=== PATIENT | male | born 1970 | race Caucasian/White ===

== ENCOUNTER → 2017-06-17 19:50 | Emergency (ER) | payer BC ==
[~2017-06-17 19:50] MED LIST: HYDROcodone/ACETAMIN 5-325 MG* 1 TAB PO ONE
[2017-06-17 19:55] VITALS: BP 137/83
--- NOTE | 2017-06-17 21:23 | RAD ---
Indication: Severe heel pain radiating to the arch of the foot following running injury. Unable to weight-bear. Comparison: No relevant prior exams available on the [facility] for comparison. Technique: AP, lateral, and oblique views LEFT foot. 3 views of the os calcis. Report: Approximate 35 degrees hallux valgus deformity. Minimal osteophytosis and subchondral sclerosis at the first metatarsal phalangeal joint without significant joint space narrowing. Mild osteophytosis at the talocrural joint. No fracture or radiographic stigmata of stress reaction evident. Moderate Achilles tendon insertion and small plantar fascia origin bone spurs. Mild nonfocal soft tissue swelling. IMPRESSION: 1. Heel spurs. 2. 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 Mild hallux valgus deformity.
--- NOTE | 2017-06-17 21:23 | RAD ---
Indication: Severe heel pain radiating to the arch of the foot following running injury. Unable to weight-bear. Comparison: No relevant prior exams available on the [facility] for comparison. Technique: AP, lateral, and oblique views LEFT foot. 3 views of the os calcis. Report: Approximate 35 degrees hallux valgus deformity. Minimal osteophytosis and subchondral sclerosis at the first metatarsal phalangeal joint without significant joint space narrowing. Mild osteophytosis at the talocrural joint. No fracture or radiographic stigmata of stress reaction evident. Moderate Achilles tendon insertion and small plantar fascia origin bone spurs. Mild nonfocal soft tissue swelling. IMPRESSION: 1. Heel spurs. 2. 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 Mild hallux valgus deformity.
--- NOTE | 2017-06-17 22:37 | UC ---
Lower Extremity/Ankle HPI - HPI Summary HPI Summary: PLAYING SOFTBALL, RUNNING TO FIRST BASE, FELT POP IN LEFT MIDFOOT WITH HEEL PAIN. NO PREVIOUS INJURY, PAIN IN MIDFOOT SINCE TIME OF INJURY - History of Current Complaint Chief Complaint: UCLowerExtremity Stated Complaint: FOOT INJURY Time Seen by Provider: 06/17/17 20:35 Hx Obtained From: Patient Onset/Duration: Sudden Onset, Lasting Hours, Still Present Severity Initially: Moderate Severity Currently: Moderate Pain Intensity: 10 Pain Scale Used: 0-10 Numeric Aggravating Factor(s): Standing, Ambulation Alleviating Factor(s): Rest, Elevation Able to Bear Weight: No - Risk Factors Gout Risk Factors: Negative DVT Risk Factors: Negative Septic Arthritis Risk Factor: Negative - Allergies/Home Medications Allergies/Adverse Reactions: Allergies Allergy/AdvReac Type Severity Reaction Status Date / Time SEAONAL Allergy Coughing Uncoded 10/25/16 15:59 PMH/Surg Hx/FS Hx/Imm Hx Previously Healthy: Yes - Surgical History Surgical History: Yes Surgery Procedure, Year, and Place: TONSILECTOMY age 32. HERNIA REPAIR age 3 - Family History Known Family History: Positive: Hypertension, Other - Father brain aneurysm at age 41 - Social History Occupation: Employed Full-time Lives: With Family Alcohol Use: Occasionally Substance Use Type: None Smoking Status (MU): Former Smoker Have You Smoked in the Last Year: No When Did the Patient Quit Smoking/Using Tobacco: when he was 26 - Immunization History Most Recent Influenza Vaccination: none Review of Systems Constitutional: Negative Skin: Negative Eyes: Negative ENT: Negative Respiratory: Negative Cardiovascular: Negative Gastrointestinal: Negative Genitourinary: Negative Motor: Negative Neurovascular: Negative Musculoskeletal: Arthralgia, Myalgia Neurological: Negative Psychological: Negative All Other Systems Reviewed And Are Negative: Yes Physical Exam Triage Information Reviewed: Yes Appearance: Well-Appearing, Well-Nourished, Pain Distress Vital Signs: Initial Vital Signs Temp 98.4 F 06/17/17 19:52 Pulse 80 06/17/17 19:52 Resp 17 06/17/17 19:52 BP 137/83 06/17/17 19:52 Pulse Ox 100 06/17/17 19:52 Vital Signs Reviewed: Yes Eye Exam: Normal ENT Exam: Normal ENT: Positive: Normal ENT inspection, Hearing grossly normal, Pharynx normal, TMs normal Dental Exam: Normal Neck exam: Normal Respiratory Exam: Normal Respiratory: Positive: Chest non-tender, Lungs clear, Normal breath sounds, No respiratory distress, No accessory muscle use Cardiovascular Exam: Normal Cardiovascular: Positive: RRR, No Murmur, Pulses Normal Abdominal Exam: Normal Musculoskeletal: Positive: Strength Intact, ROM Intact, No Edema, Other: - PAIN IN MIDFOOT OF LEFT FOOT, TENDER TO PALPATION Neurological Exam: Normal Psychological Exam: Normal Skin Exam: Normal Diagnostics - Laboratory Diagnostic Studies Completed/Ordered: HEEL SPURS, OSTEOARTHRITIS OF TALOCRURAL JOINT, MILD HALLUX VAGUS DEFORMITY Lower Extremity Course/Dx - Differential Dx/Diagnosis Differential Diagnosis/HQI/PQRI: Fracture (Closed), Sprain, Strain Provider Diagnoses: LEFT FOOT SPRAIN, LEFT PLANTAR FASCIITIS Discharge - Discharge Plan Condition: Stable Disposition: HOME Prescriptions: HYDROcodone/ACETAMIN 5-325 MG* [Linn 5-325 TAB*] 1 tab PO Q8H PRN #9 tab MDD three tabs PRN Reason: Pain Patient Education Materials: Plantar Fasciitis Exercises (GEN), Plantar Fasciitis (ED), Foot Sprain (ED) Referrals: Manuel Tavarez MD [Medical Doctor] - Manuel Alva DPM [Doctor of Podiatric Medicine] - Easton Rock MD [Primary Care Provider] -
== END | disposition home or self-care (01) ==
LOC: UCEAST 19:50
DX: S93.602A Unspecified sprain of left foot, initial encounter (principal); M72.2 Plantar fascial fibromatosis; Z87.891 Personal history of nicotine dependence; X58.XXXA Exposure to other specified factors, initial encounter; Y93.64 Activity, baseball
CPT/HCPCS: 99213; G0463

== ENCOUNTER 2018-07-31 19:07 | Emergency (ER) | payer BC ==
[2018-07-31 19:30] VITALS: BP 134/94
[2018-07-31] MEDS ORDERED: Ciprofloxacin TAB* 500 MG PO ONE (19:51)
[2018-07-31] MEDS ORDERED: metroNIDAZOLE TAB* 250 MG PO ONE (19:51)
--- NOTE | 2018-07-31 19:57 | UC ---
Abdominal Pain Male HPI - HPI Summary HPI Summary: Patient is a 48-year-old male with diabetes who presents here with the onset of left sided abdominal pain which started yesterday morning. Pain has worsened this afternoon. Pain is worse with certain movements or if he stays seated too long. He has felt like the pain is due to gas. Today he felt cold. He had a hernia repair as a child. Last night his pain would wake him up if he turned over in bed. - History of Current Complaint Chief Complaint: UCAbdominalPain Stated Complaint: ABDOMINAL PAIN Time Seen by Provider: 07/31/18 19:19 Hx Obtained From: Patient Onset/Duration: Gradual Onset, Lasting Hours Timing: Constant Severity Initially: Mild Severity Currently: Moderate Pain Intensity: 1 - but worsens Location: Discrete At: LLQ Radiates: No Character: Colicy Aggravating Factor(s): Movement Alleviating Factor(s): Rest, Position - Allergies/Home Medications Allergies/Adverse Reactions: Allergies Allergy/AdvReac Type Severity Reaction Status Date / Time SEAONAL Allergy Coughing Uncoded 07/31/18 19:19 Home Medications: Home Medications Metformin ER (NF) 1,000 mg PO DAILY 07/31/18 [History Confirmed 07/31/18] PMH/Surg Hx/FS Hx/Imm Hx Endocrine History: Diabetes, Dyslipidemia - Surgical History Surgical History: Yes Surgery Procedure, Year, and Place: TONSILECTOMY age 32. HERNIA REPAIR age 3 - Family History Known Family History: Positive: Hypertension, Diabetes, Other - Father brain aneurysm at age 41 - Social History Alcohol Use: Occasionally Substance Use Type: None Smoking Status (MU): Former Smoker Have You Smoked in the Last Year: No When Did the Patient Quit Smoking/Using Tobacco: when he was 26 - Immunization History Most Recent Influenza Vaccination: none Review of Systems Constitutional: Chills Skin: Negative Eyes: Negative ENT: Negative Respiratory: Negative Cardiovascular: Negative Gastrointestinal: Abdominal Pain Genitourinary: Negative Motor: Negative Neurovascular: Negative Musculoskeletal: Negative Neurological: Negative Psychological: Negative Is Patient Immunocompromised?: No All Other Systems Reviewed And Are Negative: Yes Physical Exam Triage Information Reviewed: Yes Appearance: Well-Appearing, No Pain Distress, Well-Nourished Vital Signs: Initial Vital Signs Temp 100.0 F 07/31/18 19:21 Pulse 93 07/31/18 19:21 Resp 18 07/31/18 19:21 BP 134/94 07/31/18 19:21 Pulse Ox 97 07/31/18 19:21 Vital Signs Reviewed: Yes Eyes: Positive: Conjunctiva Clear ENT: Negative: Nasal congestion, Nasal drainage, Trismus, Muffled voice Neck: Positive: Supple, Nontender Respiratory: Positive: Lungs clear, Normal breath sounds, No respiratory distress, No accessory muscle use Cardiovascular: Positive: RRR, No Murmur Abdomen Description: Negative: Nontender - markedly tender left abd Bowel Sounds: Positive: Present Musculoskeletal: Positive: ROM Intact, No Edema Neurological: Positive: Alert Psychological Exam: Normal Skin Exam: Normal Abd Pain Male Course/Dx - Differential Dx/Clinical Impression Provider Diagnoses: left sided abd pain- suspect diverticulitis Discharge - Sign-Out/Discharge Documenting (check all that apply): Patient Departure All imaging exams completed and their final reports reviewed: No Studies - Discharge Plan Condition: Stable Disposition: TRANS HIGHER LVL OF CARE FAC Referrals: Easton Rock MD [Primary Care Provider] - Additional Instructions: I suggest you go straight to the ER for evaluation of your pain Don't eat or drink en route I suspect you have diverticulitis - Billing Disposition and Condition Condition: STABLE Disposition: Trans Higher Lvl of Care Fac
== END 2018-07-31 20:06 | disposition short-term general hospital (02) ==
LOC: UCEAST 19:07
DX: R10.32 Left lower quadrant pain (principal); E11.9 Type 2 diabetes mellitus without complications; Z79.84 Long term (current) use of oral hypoglycemic drugs; Z87.891 Personal history of nicotine dependence
CPT/HCPCS: 99212; A9270-GY; G0463

== ENCOUNTER 2018-11-06 22:08 | Emergency (ER) | payer BC ==
--- OUTSIDE RECORDS SUMMARY | 2018-11-06 22:19 | XMS REPORT | Continuity of Care Document ---
:1970 External Reference #:[id number] Author Name Kelley Mujica Care Team Providers Name Role Phone Easton Rock MD Primary Care Physician Unavailable Payers Type Date Identification Numbers Payment Provider Subscriber Effective: Policy Number: [id number] [employer] [place] 2011 PayID: [id number] [address] [address] [place] [address] Advance Directives Description No Information Available Problems Date Description Provider Status Onset: 11/26/2013 Shoulder joint pain Osvaldo Lozano M.D. 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 ETOH Use Drinks 4 Alcoholic Beverages Per Week Tobacco Use Start: Unknown Patient has never smoked Smoking Status Reviewed: 10/14/18 Patient has never smoked Exercise Type/Frequency Exercises regularly Allergies, Adverse Reactions, Alerts Description No Known Drug Allergies Medications Medication Date Status Form Strength Qnty SIG Indications Ordering Provider Atorvastatin Active Tablets 20mg Vu, Calcium 00 Elsa, ICE CREAM CHEF Metformin HCL Active Tablets 1000mg 2 pills Unknown 00 twice a day by mouth Medications Administered in Office Medication Date Status Form Strength Qnty SIG Indications Ordering Provider Depomedrol Administered Injection Osvaldo 80MG Latesha Lozano M.D. Immunizations Description No Information Available Vital Signs Date Vital Result Comment 10/14/2018 4:15pm Height 68 inches 5'8" Weight 196.50 lb Heart Rate 71 /min BP Systolic 109 mmHg BP Diastolic 73 mmHg Respiratory Rate 18 /min Pain Level 0 O2 % BldC Oximetry 99 % BMI (Body Mass Index) 29.9 kg/m2 09/04/2012 8:36am Height 68 inches 5'8" Weight 224.00 lb Heart Rate 72 /min BP Systolic 133 mmHg BP Diastolic 89 mmHg BMI (Body Mass Index) 34.1 kg/m2 Results Description No Information Available Procedures Date Code Description Status 10/21/2012 Inject/Drain Joint/Bursa Major W/O US Completed 10/21/2012 Inject Tendon Sheath Or Ligament Aponeurosis Eg Plantar Completed Fascia 09/04/2012 88604 Rad Shoulder Comp, Min. 2 Views Completed Encounters Type Date Location Provider Dx Diagnosis Office Visit 02/03/2013 Mukund Lozano M.D. 726.2 Shoulder Region 11:45a Services Of [facility] Affections Other Not Elsewhere Class Office Visit 11/27/2012 Orthopedic Tyshawn Barbosa 726.2 Shoulder Region 3:30p Services Of [facility] [place], Affections Other R.P.A.-C Not Elsewhere Class Office Visit 10/21/2012 Mukund Lozano M.D. 719.51 Stiffness Joint 8:45a Services Of [facility] Not Elsewhere Classified Shoulder Region 726.2 Shoulder Region Affections Other Not Elsewhere Class 719.41 Pain Joint Shoulder Region Office Visit 09/04/2012 8:00a Mukund Lozano 719.51 Stiffness Joint Services Of [facility] Not Elsewhere C.[facility]AMiguel Classified Shoulder Region 726.2 Shoulder Region Affections Other Not Elsewhere Class Plan of Treatment No Information Available
--- OUTSIDE RECORDS SUMMARY | 2018-11-06 22:19 | XMS REPORT ---
:1970 External Reference #:[id number] Author Organization [facility] Address [address] [place] [address] Phone [phone] Care Team Providers Name Role Phone Easton Rock MD Care Team Information [employer] Unavailable Easton Rock MD Primary Care Physician Unavailable Payers Type Date Identification Numbers Payment Provider Subscriber Commercial Effective: Policy Number: BC/BS Of IVA [place] 2011 [id number] PayID: [id number] [place] [address] Medigap Part B Effective: Policy Number: BC/BS Of IVA [place] 2004 [id number] Ricci Expires: 2011 Group Number: [id number] [address] PayID: [id number] [place] [address] Problems Date Description Provider Status Onset: 11/10/2008 Hyperlipidemia Easton Rock M.D. Active Onset: 11/03/2016 Type 2 diabetes mellitus Easton Rock M.D. Active Onset: 11/03/2016 Acute maxillary sinusitis Easton Rock M.D. 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 2015 day Niaspan 09/20/ Hx TBCR 500mg 30uni Take One 272.4 Easton AMiguel 2009 - ts Tablet By Shweta, 05/07/ Mouth AT M.D. 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 2008 Doxycycline 10/25/ Hx Capsules 100mg 28cap 1 PO bid 466.0 Pillai A. 2006 - s Ines, 01/09/ M.D. 2007 Guaifenisin 11/19/ Hx 600mg 30uni 1 PO bid Jaelyn 2006 - ts prn Kadeem, 12/03/ Afnp-C 2007 Viscous 11/02/ Hx 2% 4Oz Mix W/ 528.09 Lois Lidocaine 2006 - Equal Parts Scott, 11/12/ Of Liquid Afnp-C 2006 Benadryl And Maalox; Gargle And Spit Q 4 HRS prn 4 Oz Total Of Mixture Doxycycline 10/07/ Hx Capsules 100mg 20cap 1 po bid 466.0 Jaelyn 2006 - s Kadeem, 11/29/ Afnp-C 2007 Tussi Organidin 10/07/ Hx 100cc 1 -2 TSP 466.0 Easton A. DM-NR 2006 - qid prn Darlow, 10/17/ M.D. 2005 Astelin Nasal 12/20/ Hx Solution 137mcg 1Bott 2 sprays Easton Sweet [place] 2005 - le tid prn Darlow, 03/09/ M.D. 2014 Nasacort 12/20/ Hx 1unit 2 sprays qd Easton AMiguel 2005 - s Shweta, 12/04/ M.D. 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 2006 Zithromax 08/17/ Hx 250mg 6unit 2 Tabs Day Seda 2002 - s 1 Ny, 11/16/ FOOD SERVICE DRIVER 2002 1 Tab qd Days 2 Thru 5 Tussi-12 08/17/ Hx Liquid 100cc 1 TSP Q12H Seda 2002 - prn Cough Ny, 11/16/ FOOD SERVICE DRIVER 2002 Return To Work 08/17/ Hx May Not Seda 2002 - Return To Ny, 11/16/ Work FOOD SERVICE DRIVER 2002 [id number] Clarinex 08/04/ Hx 5mg 30uni 1 qd Easton A. 2003 - ts Darlow, 12/20/ M.D. 2006 Tobramycin 08/04/ Hx 5cc 2 GTT In Easton A. Ophthalmic 2002 - The Darlow, Solution 08/11/ Affected M.D. 2002 Eye tid For 5-7Days Naprosyn 02/10/ Hx Tabs 500mg 30tab 1 bid With Easton Sweet 2003 - s Food Darlow, 03/12/ M.D. 2002 Physical 02/10/ Hx Treatment Easton AMiguel Therapy 2002 - And Darlow, 03/12/ Evaluation M.D. 2002 Of Bilateral Shoulder Pain Zithromax 11/07/ Hx 250mg 6unit 2 Tabs Day Seda 2000 - s 1 Ny, 11/17/ FOOD SERVICE DRIVER 2000 1 Tab qd Days 2 Thru 5 Maribel 07/07/ Hx 180mg 30uni 1 PO qd Seda 2000 - ts Ny, 01/07/ FOOD SERVICE DRIVER 2001 Zithromax 05/14/ Hx 250mg 6unit 2 Tabs Day Suresh SMiguel 1999 - s 1 [facility], 05/20/ M.D. 1999 1 Tab qd Days 2 Thru 5 Sulamyd 01/04/ Hx Ophth Soln 1Bott 2 gtts Lois 1999 - le Affected Scott, 01/11/ Eye Q 3-4 Afnp-C 2000 HRS X 7 Days Claritin 08/30/ Hx 10mg 30uni 1 qd Walter Blanchard 1997 - ts Silvino, 07/07/ M.D. 2000 Allergy Shots / Hx Unknown 0000 - 2017 Flagyl / Hx Tablets 500mg 1 po tid x Unknown 0000 - 10 days 2017 Ciprofloxacin 00/ Hx Tablets 500mg 1 by mouth Unknown HCL 0000 - twice a day 10/08/ x 10 days 2018 Immunizations CPT Code Status Date Vaccine Lot # [id number] Given 08/27/2017 Influenza Vac, Quadriv[place], [place] [id number] Given 09/14/2015 Influenza Vac, Quadrivalent, Slit Virus, Im [id number] Given 09/05/2013 DO Not Use Split Influenza Virus Vaccine [id number] Given 11/10/2008 Tdap Tetanus, W Pertussis [id number] Given 10/06/2008 DO Not Use Split Influenza Virus Vaccine [id number] Vital Signs Date Vital Result Comment 10/08/2018 BP Systolic 110 mmHg BP Diastolic 80 mmHg Heart Rate 60 /min Body Temperature 98.5 F Respiratory Rate 16 /min Height 67.5 inches 5'7.50" Weight 204.00 lb BMI (Body Mass Index) 31.5 kg/m2 08/05/2018 BP Systolic 128 mmHg BP Diastolic 80 mmHg Heart Rate 72 /min Body Temperature 97.9 F Respiratory Rate 16 /min Height 67.5 inches 5'7.50" Weight 205.00 lb BMI (Body Mass Index) 31.6 kg/m2 06/10/2018 BP Systolic 142 mmHg BP Diastolic 86 mmHg Heart Rate 72 /min Body Temperature 98.0 F Respiratory Rate 16 /min Height 67.5 inches 5'7.50" Weight 235.00 lb BMI (Body Mass Index) 36.3 kg/m2 11/03/2016 BP Systolic 150 mmHg BP Diastolic 94 mmHg BP Systolic Recheck 140 mmHg ryley 10' BP Diastolic Recheck 90 mmHg ryley 10' Heart Rate 84 /min Body Temperature 98.1 F Respiratory Rate 16 /min Height 67.5 inches 5'7.50" Weight 232.00 lb BMI (Body Mass Index) 35.8 kg/m2 09/14/2015 BP Systolic 120 mmHg BP Diastolic 78 mmHg Heart Rate 64 /min Body Temperature 97.0 F Respiratory Rate 12 /min Height 67.5 inches 5'7.50" Weight 214.00 lb BMI (Body Mass Index) 33.0 kg/m2 03/09/2015 BP Systolic 110 mmHg BP Diastolic 72 mmHg Heart Rate 64 /min Body Temperature 97.6 F Respiratory Rate 12 /min Height 67.5 inches 5'7.50" Weight 213.00 lb BMI (Body Mass Index) 32.9 kg/m2 12/07/2014 BP Systolic 120 mmHg BP Diastolic 70 mmHg Heart Rate 88 /min Body Temperature 99.6 F Respiratory Rate 18 /min Height 67.75 inches 5'7.75" measured Weight 222.00 lb BMI (Body Mass Index) 34.0 kg/m2 12/03/2014 BP Systolic 122 mmHg BP Diastolic 80 mmHg Heart Rate 68 /min Body Temperature 96.9 F Respiratory Rate 18 /min O2 % BldC Oximetry 99 % Height 67.75 inches 5'7.75" measured Weight 222.00 lb BMI (Body Mass Index) 34.0 kg/m2 09/22/2013 BP Systolic 124 mmHg BP Diastolic 80 mmHg Heart Rate 68 /min Body Temperature 97.4 F Respiratory Rate 18 /min Height 67.75 inches 5'7.75" measured Weight 210.00 lb BMI (Body Mass Index) 32.2 kg/m2 06/22/2013 BP Systolic 110 mmHg BP Diastolic 80 mmHg Heart Rate 72 /min Body Temperature 98.1 F Respiratory Rate 12 /min Height 67.75 inches 5'7.75" measured Weight 229.00 lb BMI (Body Mass Index) 35.1 kg/m2 05/07/2012 BP Systolic 120 mmHg BP Diastolic 80 mmHg Heart Rate 68 /min Body Temperature 97.1 F Respiratory Rate 12 /min Height 67.75 inches 5'7.75" measured Weight 238.00 lb BMI (Body Mass Index) 36.5 kg/m2 Right Visual Acuity Distance 20/20 uncorrected Left Visual Acuity Distance 20/20 uncorrected 09/20/2010 BP Systolic 120 mmHg BP Diastolic 72 mmHg Heart Rate 68 /min Body Temperature 98.2 F Respiratory Rate 16 /min Height 67.75 inches 5'7.75" measured Weight 227.00 lb BMI (Body Mass Index) 34.8 kg/m2 07/12/2010 BP Systolic 116 mmHg BP Diastolic 70 mmHg Heart Rate 72 /min Body Temperature 97.5 F Respiratory Rate 16 /min Height 67.75 inches 5'7.75" measured Weight 225.00 lb BMI (Body Mass Index) 34.5 kg/m2 Right Visual Acuity Distance 20/20 Left Visual Acuity Distance 20/20 10/15/2009 BP Systolic 112 mmHg BP Diastolic 80 mmHg Heart Rate 66 /min Body Temperature 97.1 F Weight 233.00 lb 02/12/2009 BP Systolic 100 mmHg BP Diastolic 60 mmHg Heart Rate 80 /min Body Temperature 101.1 F Respiratory Rate 18 /min Weight 223.00 lb 02/11/2009 BP Systolic 110 mmHg BP Diastolic 70 mmHg Heart Rate 68 /min Body Temperature 98.3 F Respiratory Rate 20 /min Weight 229.00 lb 11/10/2008 BP Systolic 112 mmHg BP Diastolic 82 mmHg Heart Rate 76 /min Body Temperature 98.3 F Height 67.5 inches 5'7.50" Weight 222.00 lb BMI (Body Mass Index) 34.3 kg/m2 Right Visual Acuity Distance 20/20 Left Visual Acuity Distance 20/20 12/31/2007 BP Systolic 92 mmHg BP Diastolic 74 mmHg Heart Rate 92 /min Body Temperature 100.3 F Height 67.5 inches 5'7.50" Weight 223.00 lb BMI (Body Mass Index) 34.4 kg/m2 10/25/2007 BP Systolic 110 mmHg BP Diastolic 70 mmHg Heart Rate 76 /min Body Temperature 97.9 F Height 67.5 inches 5'7.50" Weight 225.00 lb BMI (Body Mass Index) 34.7 kg/m2 11/19/2006 BP Systolic 120 mmHg BP Diastolic 78 mmHg Heart Rate 76 /min Body Temperature 99.1 F Respiratory Rate 12 /min Height 67.5 inches 5'7.50" 11/02/2006 BP Systolic 100 mmHg BP Diastolic 60 mmHg Body Temperature 98.8 F Height 67.5 inches 5'7.50" Weight 217.00 lb BMI (Body Mass Index) 33.5 kg/m2 10/07/2006 BP Systolic 96 mmHg BP Diastolic 60 mmHg Heart Rate 64 /min Body Temperature 97.4 F O2 % BldC Oximetry 95 % Height 67.5 inches 5'7.50" Weight 212.00 lb BMI (Body Mass Index) 32.7 kg/m2 02/07/2006 BP Systolic 120 mmHg BP Diastolic 72 mmHg Heart Rate 74 /min Respiratory Rate 12 /min Height 67.5 inches 5'7.50" Weight 208.00 lb BMI (Body Mass Index) 32.1 kg/m2 12/20/2005 BP Systolic 124 mmHg BP Diastolic 72 mmHg Heart Rate 78 /min Respiratory Rate 16 /min Height 67.5 inches 5'7.50" Weight 204.00 lb BMI (Body Mass Index) 31.5 kg/m2 10/04/2005 BP Systolic 120 mmHg BP Diastolic 78 mmHg Heart Rate 80 /min Body Temperature 98.7 F Height 67.5 inches 5'7.50" Weight 200.00 lb BMI (Body Mass Index) 30.9 kg/m2 08/17/2003 BP Systolic 108 mmHg BP Diastolic 74 mmHg Heart Rate 88 /min Body Temperature 97.7 F L Ear Height 67.5 inches 5'7.50" Weight 187.00 lb BMI (Body Mass Index) 28.9 kg/m2 08/04/2003 BP Systolic 100 mmHg BP Diastolic 70 mmHg Body Temperature 98.6 F Height 67.5 inches 5'7.50" Weight 189.00 lb BMI (Body Mass Index) 29.2 kg/m2 02/10/2003 BP Systolic 130 mmHg BP Diastolic 82 mmHg Heart Rate 78 /min Body Temperature 97.1 F Respiratory Rate 18 /min Height 67.5 inches 5'7.50" Weight 210.00 lb BMI (Body Mass Index) 32.9 kg/m2 02/06/2003 BP Systolic 120 mmHg BP Diastolic 80 mmHg Heart Rate 76 /min Height 67.5 inches 5'7.50" Weight 210.00 lb BMI (Body Mass Index) 32.9 kg/m2 11/07/2001 Body Temperature 98.0 F Height 67.5 inches 5'7.50" Weight 215.00 lb BMI (Body Mass Index) 33.7 kg/m2 04/07/2001 BP Systolic 112 mmHg BP Diastolic 80 mmHg Heart Rate 84 /min Height 67.5 inches 5'7.50" Weight 200.00 lb BMI (Body Mass Index) 31.3 kg/m2 Right Visual Acuity Distance 20/20 Left Visual Acuity Distance 20/20 06/11/2000 BP Systolic 120 mmHg LA, SM Cuff BP Diastolic 68 mmHg LA, SM Cuff Heart Rate 80 /min Reg Respiratory Rate 12 /min Easy Height 67.5 inches 5'7.50" Weight 202.00 lb BMI (Body Mass Index) 31.6 kg/m2 05/14/2000 BP Systolic 100 mmHg BP Diastolic 60 mmHg Body Temperature 97.8 F Weight 198.00 lb 01/04/2000 Weight 198.00 lb 07/25/1999 BP Systolic 118 mmHg BP Diastolic 64 mmHg Body Temperature 97.2 F Weight 189.00 lb 01/11/1999 Body Temperature 100.9 F Oral Weight 192.00 lb 08/30/1998 BP Systolic 128 mmHg BP Diastolic 80 mmHg Heart Rate 78 /min Body Temperature 97.7 F Height 67.5 inches 5'7.50" Weight 200.00 lb Results Test Date Test Result H/L Range Note Comprehensive Metabolic Prof 08/30/2018 Sodium 142 mEq/L 134-149 Potassium 4.3 mEq/L 3.6-5.5 Chloride 105 mEq/L 94-112 Carbon Dioxide 24 mEq/L 21-32 Glucose 124 mg/dL High 70-105 1 BUN 17 mg/dL 6-26 Creatinine 1.0 mg/dL 0.6-1.4 BUN/Creat Ratio 17.0 CALC 8.0-36.0 Calcium 9.7 mg/dL 8.6-10.2 Total Protein 8.0 g/dL 6.4-8.3 Albumin 4.8 g/dL 3.8-5.5 Globulin 3.2 g/dL 2.0-4.8 A/G Ratio 1.5 CALC 0.6-2.3 Alk. Phosphatase 67 U/L 22-95 Alt (SGPT) 44 U/L High 7-35 2 Ast (Sgot) 25 U/L 5-34 Total Bilirubin 0.5 mg/dL 0.2-1.3 GFR Non- >60 ml/min/1.73m^ >=60 GFR >60 ml/min/1.73m^ >=60 Lipid Profile 08/30/2018 Cholesterol 144 mg/dL 120-200 Triglycerides 119 mg/dL 30-200 HDL Cholesterol 40 mg/dL 30-70 LDL (Calculated) 80 CALC 0-129 VLDL Cholesterol 24 mg/dL 0-50 HDL Risk Factor 3.6 CALC 0.0-4.4 Laboratory test finding 08/30/2018 Hemoglobin A1c (Fma) 5.4 % % 4.1-5.7 Comp Metabolic Panel 07/31/2018 Sodium 139 mmol/L 135-145 Potassium 4.1 mmol/L 3.5-5.0 Chloride 104 mmol/L 101-111 Co2 Carbon Dioxide 27 mmol/L 22-32 Anion Gap 8 mmol/L 2-11 Glucose 88 mg/dL 70-100 Blood Urea Nitrogen 17 mg/dL 6-24 Creatinine 1.02 mg/dL 0.67-1.17 BUN/Creatinine Ratio 16.7 8-20 Calcium 9.5 mg/dL 8.6-10.3 Total Protein 7.4 g/dL 6.4-8.9 Albumin 4.5 g/dL 3.2-5.2 Globulin 2.9 g/dL 2-4 Albumin/Globulin Ratio 1.6 1-3 Total Bilirubin 0.90 mg/dL 0.2-1.0 Alkaline Phosphatase 68 U/L 34-104 Alt 44 U/L 7-52 Ast 24 U/L 13-39 Egfr Non- 78.3 >60 Egfr 94.7 >60 3 Laboratory test finding 07/31/2018 Lipase 79 U/L 11.0-82.0 C Reactive Protein 55.18 mg/L High <8.01 Urinalysis Profile 07/31/2018 Urine Color Yellow Urine Appearance Clear Urine Specific [place] 1.015 1.010-1.030 Urine pH 5.0 5-9 Urine Urobilinogen Negative Negative Urine Ketones 1+ Negative Urine Protein Negative Negative Urine Leukocytes Negative Negative Urine Blood Negative Negative Urine Nitrite Negative Negative Urine Bilirubin Negative Negative Urine Glucose Negative Negative Laboratory test finding 06/10/2018 Urine Microalbumin (Fma) 117.4 Hemoglobin A1c (Fma) 7.5 % High 4.1-5.7 CBC Electronic Fma 06/10/2018 WBC 5.7 x10^3/UL 4.0-10.0 RBC 5.30 x10^6/UL 3.93-6.00 HGB 15.9 g/dL 12.0-17.0 HCT 45 % 35-50 MCV 85.3 fL 80.0-95.0 MCH 30.0 pg 25.6-32.2 MCHC 35.2 g/dL 32.2-36.0 RDW-CV 13.1 % 11.6-14.4 PLT 221 x10^3/UL 163-400 MPV 11.3 fL 9.4-12.4 Sherin# 3.01 x10^3/UL 1.56-6.13 Lymph# 1.97 x10^3/UL 1.18-3.74 Gooding# 0.55 x10^3/UL 0.24-0.82 Eos # 0.1 x10^3/UL 0.0-0.5 Baso # 0.05 x10^3/UL 0.01-0.08 Sherin% 52.5 % 34.0-70.0 Lymph % 34.3 % 20.0-52.0 Gooding% 9.6 % 5.0-12.0 Eos% 2.4 % 0.7-7.0 Baso% 0.9 % 0.1-1.2 Lipid Profile 06/10/2018 Cholesterol 237 mg/dL High 120-200 Triglycerides 169 mg/dL 30-200 HDL Cholesterol 36 mg/dL 30-70 LDL (Calculated) 167 CALC High 0-129 VLDL Cholesterol 34 mg/dL 0-50 HDL Risk Factor 6.6 CALC High 0.0-4.4 Laboratory test finding 06/10/2018 TSH 2.67 mIU/L 0.50-6.00 Free T4 1.18 ng/dL 0.75-1.54 PSA 0.8 ng/mL 0.0-4.0 Comprehensive Metabolic Prof 06/10/2018 Sodium 137 mEq/L 134-149 Potassium 3.7 mEq/L 3.6-5.5 Chloride 103 mEq/L 94-112 Carbon Dioxide 27 mEq/L 21-32 Glucose 206 mg/dL High 70-105 BUN 11 mg/dL 6-26 Creatinine 1.0 mg/dL 0.6-1.4 BUN/Creat Ratio 11.0 CALC 8.0-36.0 Calcium 9.2 mg/dL 8.6-10.2 Total Protein 7.4 g/dL 6.4-8.3 Albumin 4.6 g/dL 3.8-5.5 Globulin 2.8 g/dL 2.0-4.8 A/G Ratio 1.6 CALC 0.6-2.3 Alk. Phosphatase 77 U/L 22-95 Alt (SGPT) 95 U/L High 7-35 Ast (Sgot) 49 U/L High 5-34 Total Bilirubin 0.9 mg/dL 0.2-1.3 GFR Non- >60 ml/min/1.73m^ >=60 GFR >60 ml/min/1.73m^ >=60 Laboratory test finding 05/07/2017 Hemoglobin A1c (Fma) 6.4 % High 4.1- 5.7 Comprehensive Metabolic Prof 05/07/2017 Sodium 140 mEq/L 134-149 Potassium 3.9 mEq/L 3.6-5.5 Chloride 99 mEq/L 94-112 Carbon Dioxide 28 mEq/L 21-32 Glucose 98 mg/dL 70-105 BUN 18 mg/dL 6-26 Creatinine 1.0 mg/dL 0.6-1.4 BUN/Creat Ratio 18.0 CALC 8.0-36.0 Calcium 8.8 mg/dL 8.6-10.2 Total Protein 7.5 g/dL 6.4-8.3 Albumin 4.7 g/dL 3.8-5.5 Globulin 2.8 g/dL 2.0-4.8 A/G Ratio 1.7 CALC 0.6-2.3 Alk. Phosphatase 67 U/L 22-95 Alt (SGPT) 39 U/L High 7-35 Ast (Sgot) 28 U/L 5-34 Total Bilirubin 0.6 mg/dL 0.2-1.3 GFR Non- >60 ml/min/1.73m^ >=60 GFR >60 ml/min/1.73m^ >=60 Lipid Profile 05/07/2017 Cholesterol 147 mg/dL 120-200 Triglycerides 162 mg/dL 30-200 HDL Cholesterol 30 mg/dL 30-70 LDL (Calculated) 85 CALC 0-129 VLDL Cholesterol 32 mg/dL 0-50 HDL Risk Factor 4.9 CALC High 0.0-4.4 Laboratory test finding 10/25/2016 Point of Care Glucose 102 mg/dL 74- 106 4 Laboratory test finding 10/25/2016 Magnesium 2.4 mg/dL 1.9-2.7 C Reactive Protein 5.00 mg/L < 5.00 5 CBC Auto Diff 10/25/2016 White Blood Count 8.6 10^3/uL 3.5-10.8 Red Blood Count 5.29 10^6/uL 4.0-5.4 Hemoglobin 16.1 g/dL 14.0-18.0 Hematocrit 47 % 42-52 Mean Corpuscular Volume 89 fL 80-94 Mean Corpuscular Hemoglobin 30 pg 27-31 Mean Corpuscular HGB Conc 34 g/dL 31-36 Red Cell Distribution Width 13 % 10.5-15 Platelet Count 223 10^3/uL 150-450 Mean Platelet Volume 10 um3 7.4-10.4 Abs Neutrophils 5.4 10^3/uL 1.5-7.7 Abs Lymphocytes 2.3 10^3/uL 1.0-4.8 Abs Monocytes 0.8 10^3/uL 0-0.8 Abs Eosinophils 0.1 10^3/uL 0-0.6 Abs Basophils 0.1 10^3/uL 0-0.2 Abs Nucleated RBC 0.01 10^3/uL Granulocyte % 62.5 % 38-83 Lymphocyte % 26.6 % 25-47 Monocyte % 8.8 % 1-9 Eosinophil % 1.5 % 0-6 Basophil % 0.6 % 0-2 Nucleated Red Blood Cells % 0.1 Comp Metabolic Panel 10/25/2016 Sodium 137 mmol/L 133-145 Potassium 4.0 mmol/L 3.5-5.0 Chloride 102 mmol/L 101-111 Co2 Carbon Dioxide 19 mmol/L Low 22-32 Anion Gap 16 mmol/L High 2-11 Glucose 109 mg/dL High 70-100 Blood Urea Nitrogen 19 mg/dL 6-24 Creatinine 0.93 mg/dL 0.67-1.17 BUN/Creatinine Ratio 20.4 High 8-20 Calcium 9.4 mg/dL 8.6-10.3 Total Protein 8.0 g/dL 6.4-8.9 Albumin 4.9 g/dL 3.2-5.2 Globulin 3.1 g/dL 2-4 Albumin/Globulin Ratio 1.6 1-3 Total Bilirubin 0.60 mg/dL 0.2-1.0 Alkaline Phosphatase 65 U/L 34-104 Alt 51 U/L 7-52 Ast 33 U/L 13-39 Egfr Non- 87.9 >60 Egfr 113.0 >60 6 Laboratory test finding 10/25/2016 B-Type Natriuretic Peptide BNP 8 pg/mL 7 Troponin I 0.00 ng/mL <0.04 8 TSH (Thyroid Stim Horm) 1.57 mcIU/mL 0.34-5.60 Lipid Profile 10/23/2016 Cholesterol 211 mg/dL High 120-200 Triglycerides 255 mg/dL High 30-200 HDL Cholesterol 32 mg/dL 30-70 LDL (Calculated) 128 CALC 0-129 VLDL Cholesterol 51 mg/dL High 0-50 HDL Risk Factor 6.6 CALC High 0.0-4.4 Comprehensive Metabolic Prof 10/23/2016 Sodium 143 mEq/L 134-149 Potassium 4.1 mEq/L 3.6-5.5 Chloride 101 mEq/L 94-112 Carbon Dioxide 28 mEq/L 21-32 Glucose 115 mg/dL High 70-105 9 BUN 18 mg/dL 6-26 Creatinine 1.0 mg/dL 0.6-1.4 BUN/Creat Ratio 18.0 CALC 8.0-36.0 Calcium 9.4 mg/dL 8.6-10.2 Total Protein 7.3 g/dL 6.4-8.3 Albumin 4.3 g/dL 3.8-5.5 Globulin 3.0 g/dL 2.0-4.8 A/G Ratio 1.4 CALC 0.6-2.3 Alk. Phosphatase 71 U/L 22-95 Alt (SGPT) 29 U/L 7-35 Ast (Sgot) 32 U/L 5-34 Total Bilirubin 0.7 mg/dL 0.2-1.3 GFR Non- >60 ml/min/1.73m^ >=60 GFR >60 ml/min/1.73m^ >=60 Laboratory test finding 10/23/2016 Hemoglobin A1c (Fma) 6.9 % High 4.1- 5.7 Laboratory test finding 09/09/2016 Rapid Strep Molecular Negative Negative 10 Comprehensive Metabolic 09/14/2015 Sodium 136 mEq/L 134-149 Prof Potassium 3.9 mEq/L 3.6-5.5 Chloride 99 mEq/L 94-112 Carbon Dioxide 26 mEq/L 21-32 Glucose 103 mg/dL 70-105 BUN 19 mg/dL 6-26 Creatinine 0.9 mg/dL 0.6-1.4 BUN/Creat Ratio 21.1 CALC 8.0-36.0 Calcium 9.0 mg/dL 8.6-10.2 Total Protein 7.8 g/dL 6.4-8.3 Albumin 4.8 g/dL 3.8-5.5 Globulin 3.0 g/dL 2.0-4.8 A/G Ratio 1.6 CALC 0.6-2.3 Alk. Phosphatase 54 U/L 22-95 Alt (SGPT) 41 U/L High 7-35 11 Ast (Sgot) 25 U/L 5-34 Total Bilirubin 0.8 mg/dL 0.2-1.3 GFR Non- >60 ml/min/1.73m^ >=60 GFR >60 ml/min/1.73m^ >=60 Lipid Profile 09/14/2015 Cholesterol 185 mg/dL 120-200 Triglycerides 138 mg/dL 30-200 HDL Cholesterol 31 mg/dL 30-70 LDL (Calculated) 126 CALC 0-129 VLDL Cholesterol 28 mg/dL 0-50 HDL Risk Factor 6.0 CALC High 0.0-4.4 Laboratory test finding 03/01/2015 Hemoglobin A1c 5.4 % 4.1-5.7 (Fma/CMC,CX) Comprehensive Metabolic 03/01/2015 Sodium 137 mEq/L 134-149 Prof Potassium 3.8 mEq/L 3.6-5.5 Chloride 99 mEq/L 94-112 Carbon Dioxide 25 mEq/L 21-32 Glucose 122 mg/dL High 70-105 12 BUN 20 mg/dL 6-26 Creatinine 0.9 mg/dL 0.6-1.4 BUN/Creat Ratio 22.2 CALC 8.0-36.0 Calcium 9.2 mg/dL 8.6-10.2 Total Protein 7.2 g/dL 6.4-8.3 Albumin 4.6 g/dL 3.8-5.5 Globulin 2.6 g/dL 2.0-4.8 A/G Ratio 1.8 CALC 0.6-2.3 Alk. Phosphatase 54 U/L 22-95 Alt (SGPT) 47 U/L High 7-35 13 Ast (Sgot) 23 U/L 5-34 Total Bilirubin 0.7 mg/dL 0.2-1.3 Lipid Profile 03/01/2015 Cholesterol 171 mg/dL 120-200 Triglycerides 130 mg/dL 30-200 HDL Cholesterol 38 mg/dL 30-70 LDL (Calculated) 107 CALC 0-129 VLDL Cholesterol 26 mg/dL 0-50 HDL Risk Factor 4.5 CALC High 0.0-4.4 Influenza A&B-fma 12/03/2014 Influenza A neg Influenza B neg Laboratory test finding 12/03/2014 Throat - Beta Strep Fma [id number] Quickstrep neg Negative Laboratory test finding 11/26/2014 Hemoglobin A1c 5.6 % 4.1-5.7 (a/[facility],CX) Comprehensive Metabolic 11/26/2014 Sodium 138 mEq/L 134-149 Prof Potassium 3.9 mEq/L 3.6-5.5 Chloride 102 mEq/L 94-112 Carbon Dioxide 26 mEq/L 21-32 Glucose 146 mg/dL High 70-105 14 BUN 18 mg/dL 6-26 Creatinine 0.8 mg/dL 0.6-1.4 BUN/Creat Ratio 22.5 CALC 8.0-36.0 Calcium 8.9 mg/dL 8.6-10.2 Total Protein 7.1 g/dL 6.4-8.3 Albumin 4.3 g/dL 3.8-5.5 Globulin 2.8 g/dL 2.0-4.8 A/G Ratio 1.5 CALC 0.6-2.3 Alk. Phosphatase 55 U/L 22-95 Alt (SGPT) 54 U/L High 7-35 15 Ast (Sgot) 30 U/L 5-34 Total Bilirubin 0.5 mg/dL 0.2-1.3 Lipid Profile 11/26/2014 Cholesterol 182 mg/dL 120-200 Triglycerides 174 mg/dL 30-200 HDL Cholesterol 37 mg/dL 30-70 LDL (Calculated) 110 CALC 0-129 VLDL Cholesterol 35 mg/dL 0-50 HDL Risk Factor 4.9 CALC High 0.0-4.4 Laboratory test finding 03/05/2014 TSH 1.21 mIU/L 0.50-6.00 16 Laboratory test finding 03/05/2014 C Reactive Protein 1.84 mg/L < 5.00 17 Comprehensive Metabolic Prof 03/05/2014 Sodium 138 mEq/L 134-149 Potassium 4.1 mEq/L 3.6-5.5 Chloride 99 mEq/L 94-112 Carbon Dioxide 27 mEq/L 21-32 Glucose 99 mg/dL 70-105 BUN 19 mg/dL 6-26 Creatinine 1.0 mg/dL 0.6-1.4 BUN/Creat Ratio 19.0 CALC 8.0-36.0 Calcium 9.0 mg/dL 8.6-10.2 Total Protein 7.3 g/dL 6.3-8.1 Albumin 4.8 g/dL 3.8-5.5 Globulin 2.5 g/dL 2.0-4.8 A/G Ratio 1.9 CALC 0.6-2.3 Alk. Phosphatase 62 U/L 22-95 Alt (SGPT) 40 U/L 10-40 Ast (Sgot) 30 U/L 5-34 Total Bilirubin 0.7 mg/dL 0.2-1.3 Lipid Profile 03/05/2014 Cholesterol 189 mg/dL 120-200 Triglycerides 82 mg/dL 30-200 HDL Cholesterol 45 mg/dL 30-70 LDL (Calculated) 128 CALC 0-129 VLDL Cholesterol 16 mg/dL 0-50 HDL Risk Factor 4.2 CALC 0.0-4.4 Comprehensive Metabolic Prof 12/03/2013 Albumin 4.7 g/dL 3.8-5.5 Alk. Phos. 55 U/L 22-95 Alt (SGPT) 62 U/L High 10-40 18 Ast (Sgot) 32 U/L 5-34 BUN 21 mg/dL 6-26 Calcium 9.7 mg/dL 8.6-10.2 Chloride 98 mEq/L 94-112 Creatinine 1.1 mg/dL 0.6-1.4 Carbon Dioxide 27 mEq/L 21-32 Glucose 108 mg/dL High 70-105 19 Sodium 135 mEq/L 134-149 Total Bilirubin 0.7 mg/dL 0.2-1.3 Total Protein 7.1 g/dL 6.3-8.1 Potassium 3.6 mEq/L 3.6-5.5 Globulin 2.5 g/dL 2.0-4.8 A/G Ratio 1.9 Calc 0.6-2.3 BUN/Creat Ratio 18.8 Calc 8.0-36.0 Lipid Profile 12/03/2013 Cholesterol 270 mg/dL High 120-200 HDL 32 mg/dL 30-70 Triglycerides 133 mg/dL 30-200 HDL Risk Factor 8.4 CALC High 0.0-4.4 LDL (Calculated) 211 CALC High 0-129 VLDL (Calculated) 27 mg/dL 0-50 Laboratory test finding 12/03/2013 TSH 1.99 mIU/L 0.50-6.00 Laboratory test finding 12/03/2013 CRP High Sensitivity 2.0 mg/L 20 Comprehensive Metabolic 09/09/2013 Albumin 4.6 g/dL 3.8-5.5 Prof Alk. Phos. 61 U/L 22-95 Alt (SGPT) 52 U/L High 10-40 Ast (Sgot) 54 U/L High 5-34 BUN 14 mg/dL 6-26 Calcium 9.2 mg/dL 8.6-10.2 Chloride 102 mEq/L 94-112 Creatinine 1.2 mg/dL 0.6-1.4 Carbon Dioxide 26 mEq/L 21-32 Glucose 111 mg/dL High 70-105 21 Sodium 141 mEq/L 134-149 Total Bilirubin 0.6 mg/dL 0.2-1.3 Total Protein 7.2 g/dL 6.3-8.1 Potassium 4.1 mEq/L 3.6-5.5 Globulin 2.6 g/dL 2.0-4.8 A/G Ratio 1.8 Calc 0.6-2.3 BUN/Creat Ratio 11.6 Calc 8.0-36.0 Lipid Profile 09/09/2013 Cholesterol 238 mg/dL High 120-200 HDL 28 mg/dL Low 30-70 Triglycerides 138 mg/dL 30-200 HDL Risk Factor 8.5 CALC High 0.0-4.4 LDL (Calculated) 183 CALC High 0-129 VLDL (Calculated) 28 mg/dL 0-50 Laboratory test finding 09/09/2013 Hemoglobin A1c 5.9 % High 4.1-5.7 ([facility],CX) Lipid Profile 06/22/2013 Cholesterol 243 mg/dL High 120-200 HDL 28 mg/dL Low 30-70 Triglycerides 196 mg/dL 30-200 HDL Risk Factor 8.7 CALC High 0.0-4.4 LDL (Calculated) 176 CALC High 0-129 VLDL (Calculated) 39 mg/dL 0-50 Comprehensive Metabolic Prof 06/22/2013 Albumin 4.6 g/dL 3.8-5.5 Alk. Phos. 67 U/L 22-95 Alt (SGPT) 74 U/L High 10-40 Ast (Sgot) 43 U/L High 5-34 BUN 13 mg/dL 6-26 Calcium 9.1 mg/dL 8.6-10.2 Chloride 100 mEq/L 94-112 Creatinine 1.1 mg/dL 0.6-1.4 Carbon Dioxide 27 mEq/L 21-32 Glucose 140 mg/dL High 70-105 22 Sodium 139 mEq/L 134-149 Total Bilirubin 0.5 mg/dL 0.2-1.3 Total Protein 7.5 g/dL 6.3-8.1 Potassium 4.1 mEq/L 3.6-5.5 Globulin 2.8 g/dL 2.0-4.8 A/G Ratio 1.6 Calc 0.6-2.3 BUN/Creat Ratio 12.0 Calc 8.0-36.0 Laboratory test finding 06/22/2013 Hemoglobin A1c 6.1 % High 4.1-5.7 ([facility],CX) Laboratory test finding 05/21/2012 Hemoglobin A1c 6.3 % High 4.1-5.7 ([facility],CX) Lipid Profile 05/21/2012 Cholesterol 238 mg/dL High 120-200 HDL 34 mg/dL 30-70 Triglycerides 243 mg/dL High 30-200 HDL Risk Factor 7.0 CALC High 0.0-4.0 LDL (Calculated) 155 CALC High 0-129 VLDL (Calculated) 49 mg/dL 0-50 Comprehensive Metabolic Prof 05/21/2012 Albumin 4.8 g/dL 3.8-5.5 Alk. Phos. 72 U/L 22-95 Alt (SGPT) 55 U/L High 10-40 23 Ast (Sgot) 33 U/L 5-34 BUN 18 mg/dL 6-26 Calcium 9.2 mg/dL 8.6-10.2 Chloride 100 mEq/L 94-112 Creatinine 1.1 mg/dL 0.6-1.4 Carbon Dioxide 26 mEq/L 21-32 Glucose 127 mg/dL High 70-105 24 Sodium 140 mEq/L 134-149 Total Bilirubin 0.6 mg/dL 0.2-1.3 Total Protein 7.5 g/dL 6.3-8.1 Potassium 4.3 mEq/L 3.6-5.5 Globulin 2.7 g/dL 2.0-4.8 A/G Ratio 1.8 Calc 0.6-2.2 BUN/Creat Ratio 16.0 Calc 8.0-36.0 Ua - Non Micro (a) 05/07/2012 Appearance CLEAR Color YELLOW Glucose, Urine (Fma/CMC/CTX) NEG Bilirubin NEG Ketones NEG SP Grav 1.015 Blood NEG PH 6.0 Protein NEG Urobil 0.2 Nitrite NEG Leukocytes (Fma/CMC/Centrex) NEG Lipid Profile 12/14/2010 Cholesterol 210 mg/dL High 120-200 HDL 42 mg/dL 30-70 Triglycerides 123 mg/dL 30-200 HDL Risk Factor 4.9 CALC 4.2-7.0 LDL (Calculated) 143 CALC High 0-129 VLDL (Calculated) 25 mg/dL 0-50 Comprehensive Metabolic Prof 12/14/2010 Albumin 4.8 g/dL 3.8-5.5 Alk. Phos. 60 U/L 22-95 Alt (SGPT) 33 U/L 10-40 Ast (Sgot) 24 U/L 5-34 BUN 13 mg/dL 6-26 Calcium 9.8 mg/dL 8.6-10.2 Chloride 104 mEq/L 94-112 Creatinine 1.0 mg/dL 0.6-1.4 Carbon Dioxide 29 mEq/L 21-32 Glucose 89 mg/dL 70-105 Sodium 141 mEq/L 134-149 Total Bilirubin 0.5 mg/dL 0.2-1.3 Total Protein 7.7 g/dL 6.3-8.1 Potassium 4.3 mEq/L 3.6-5.5 Globulin 2.8 g/dL 2.0-4.8 A/G Ratio 1.7 Calc 0.6-2.2 BUN/Creat Ratio 13.6 Calc 8.0-36.0 Lipid Profile 07/12/2010 Cholesterol 257 mg/dL High 120-200 25 HDL 30 mg/dL 30-70 Triglycerides 211 mg/dL High 30-200 HDL Risk Factor 8.7 CALC High 4.2-7.0 LDL (Calculated) 185 CALC High 0-129 VLDL (Calculated) 42 mg/dL 0-50 Comprehensive Metabolic Prof 07/12/2010 Albumin 5.0 g/dL 3.8-5.5 Alk. Phos. 60 U/L 22-95 Alt (SGPT) 69 U/L High 10-40 Ast (Sgot) 39 U/L High 5-34 BUN 17 mg/dL 6-26 Calcium 9.8 mg/dL 8.6-10.2 Chloride 97 mEq/L 94-112 Creatinine 1.0 mg/dL 0.6-1.4 Carbon Dioxide 29 mEq/L 21-32 Glucose 114 mg/dL High 70-105 26 Sodium 137 mEq/L 134-149 Total Bilirubin 0.9 mg/dL 0.2-1.3 Total Protein 7.7 g/dL 6.3-8.1 Potassium 4.2 mEq/L 3.6-5.5 Globulin 2.8 g/dL 2.0-4.8 A/G Ratio 1.8 Calc 0.6-2.2 BUN/Creat Ratio 16.8 Calc 8.0-36.0 Laboratory test finding 07/12/2010 TSH 1.07 mIU/L 0.50-6.00 Ua - Non Micro (Fma) 07/12/2010 Appearance CLEAR Color YELLOW Glucose, Urine (Fma/CMC/CTX) NEG Bilirubin NEG Ketones NEG SP Grav 1.020 Blood NEG PH 7.0 Protein SSA=NEG Urobil 1.0 Nitrite NEG Leukocytes (a/[facility]/Centrex) NEG Surgical 02/21/2009 Surgical Pathology <SEE 27 Pathology NOTE> Lipid Profile 11/16/2008 Cholesterol 212 mg/dL High 120-200 28 HDL 33 mg/dL 30-70 28 Triglycerides 221 mg/dL High 30-200 28 HDL Risk Factor 6.5 CALC 4.2-7.0 28 LDL (Calculated) 135 CALC High 0-129 28 VLDL (Calculated) 44 mg/dL 0-50 28 Comprehensive Metabolic Prof 11/16/2008 Albumin 4.1 g/dL 3.8-5.5 28 Alk. Phos. 63 U/L 22-95 28 Alt (SGPT) 55 U/L High 10-40 28, 29 Ast (Sgot) 31 U/L 5-34 28 BUN 17 mg/dL 6-26 28 Calcium 9.0 mg/dL 8.6-10.2 28 Chloride 102 mEq/L 94-112 28 Creatinine 0.9 mg/dL 0.6-1.4 28 Carbon Dioxide 27 mEq/L 21-32 28 Glucose 119 mg/dL High 70-105 28 Sodium 142 mEq/L 134-149 28 Total Bilirubin 0.4 mg/dL 0.2-1.3 28 Total Protein 7.4 g/dL 6.3-8.1 28 Potassium 4.2 mEq/L 3.6-5.5 28 Globulin 3.3 g/dL 2.0-4.8 28 A/G Ratio 1.2 Calc 0.6-2.2 28 BUN/Creat Ratio 18.8 Calc 8.0-36.0 28 Ua - Micro (Fma) 11/10/2008 Appearance CLEAR Color YELLOW Glucose, Urine (Fma/CMC/CTX) NEG Bilirubin NEG Ketones NEG SP Grav 1.025 Blood TRACE PH 5.5 Protein NEG Urobil 0.2 Nitrite NEG Leukocytes (Fma/CMC/Centrex) NEG Hyaline - /Lpf Granular - /Lpf WBC (Fma,Centrex) 0-1 RBC 1-2 Mucus (Fma/CBC/Centrex) - /Lpf Epith - /Lpf Bacteria - /Hpf Amorphous (Fma/CMC/Centrex) - /Lpf Crystals, Fluid (Fma/CMC/CTX) - Z#Comments - Laboratory test finding 12/31/2007 Quickstrep NEGATIVE Negative Throat - Beta Strep Fma NEGATIVE @48HRS Flu A&B NEGATIVE Negative Lipid Profile(Fma) Male 01/11/2006 Cholesterol 249 mg/dL High 120-200 Triglyceride 171 mg/dL 30-200 HDL Cholesterol (Fma) Male 36 mg/dL 30-70 LDL, Calculated (Fma/CMC) 179 CALC High 0-129 LDL Direct (FM/CMC/Centrex) - mg/dL 0-130 VLDL 34 0-50 HDL Risk Factor (Fma) 7.0 CALC 4.2-7.0 Laboratory test 01/11/2006 CRP (High Sensitivity) 1.11 mg/L 0.00-3.00 30 , 31 finding Homocysteine 10.75 umol/L 3.70-13.90 30 Ua - Non Micro ([facility]) 12/20/2005 Appearance CLEAR Color YELLOW Glucose NEG Bilirubin NEG Ketones NEG SP Grav 1.020 Blood NEG PH 6.5 Protein NEG g/dL Urobil 0.2 Nitrite NEG Leukocytes NEG Laboratory test finding 09/07/2000 Bleeding Time 3.25 MIN 2.5-9.5 32 Ua - Micro ([facility]) 06/13/2000 Appearance CLEAR LT YELLOW Glucose - Bilirubin - Ketones - SP Grav 1.015 Blood TRACE-LYSED PH 6.0 Protein - Urobil 0.2 Nitrite - Leukocytes - Hyaline - /Lpf Granular - /Lpf WBC'S - RBC'S 0-2 Mucus - /Lpf Epith - Bacteria - Amorphous - /Lpf Crystals - /Lpf Comments - Comp Plus Liver ([facility]) 06/13/2000 Albumin 4.2 GM/DL 3.80 - 5.50 Alkaline Phosphatase 70 U/L 39-130 Bilirubin, Direct 0.1 mg/dL 0-0.6 Bilirubin, Total 0.7 mg/dL 0.2-1.3 BUN 14 mg/dL 10-26 Calcium 8.0 mg/dL 7.4-9.2 Creatinine 1.0 mg/dL 0.6-1.4 Glucose 119 mg/dL 70 - 118 Ast Sgot 38 U/L 9-44 Alt SGPT 68 U/L 0-28 Total Protein 7.7 g/dL 6.3-8.1 Sodium 142 mEq/L 134-149 Potassium 4.2 mEq/L 3.6-5.5 Chloride 104 mEq/L 94-112 Co2 30 21-32 Globulin 3.5 2.0-4.8 A/G Ratio 1.2 0.6-2.2 Bilirubin, Indirect 0.60 ml/dl 0.10-1.0 BUN/Creatinin Ratio 14.0 8.0-36 Lipid Profile ([facility]) 06/13/2000 Cholesterol 184 mg/dL 140-200 Triglyceride 228 mg/dL High 30-150 HDL-Chol 28.8 mg/dL Low 30-70 VLDL 46 mg/dL 0-50 LDL-Calculated 109 0-160 Fma-CBC With Manual Dif 06/13/2000 WBC 7.8 /Hpf 3.6 - 9.6 RBC 4.80 /Hpf 3.90 - 5.70 Hemoglobin 15.4 g/dL 12.1 - 17.2 Hematocrit 43.7 Mean Corpuscular Vol 91.0 fl 82.2 - 97.4 Mean Corpuscular Hemaglobin 32.1 pg 27.6 - 33.3 Mean Corpuscular Hemo Concen 35.2 g/dL High 33.0 - 34.8 RDW 11.9 % 11.6 - 13.7 Platelets 212 10^3/ul 150-400 Mean Platelet Volume 8.7 fl 7.4 - 10.4 Neutrophils 27 Band 13 Lymphocytes 42 Monocytes 7 Eosinophils 5 Basophils - Metamyelocytes - Myelocytes - Promyelocyte - Blast - Atypical Lymph 9 NRBC - Morphology RBC MORPH NORMAL Comments PLT NORMAL Laboratory test finding 06/13/2000 Monospot NEGATIVE 1 NON-FASTING 2 consistent w/ previous results 3 Because ethnic data is not always readily available, this report includes an eGFR for both -Americans and non- Americans. The National Kidney Disease Education Program (NKDEP) does not endorse the use of the MDRD equation for patients that are not between the ages of 18 and 70, are , have extremes of body size, muscle mass, or nutritional status, or are non- or non-. According to the National Kidney Foundation, irrespective of diagnosis, the stage of the disease is based on the level of kidney function: Stage Description GFR(mL/min/1.73 m(2)) 1 Kidney damage with normal or decreased GFR 90 2 Kidney damage with mild decrease in GFR 60-89 3 Moderate decrease in GFR 30-59 4 Severe decrease in GFR 15-29 5 Kidney failure <15 (or dialysis) 4 Patient Insurance Clerk: [id number] [employer] 5 Acute inflammation: >10.00 6 Because ethnic data is not always readily available, this report includes an eGFR for both -Americans and non- Americans. The National Kidney Disease Education Program (NKDEP) does not endorse the use of the MDRD equation for patients that are not between the ages of 18 and 70, are , have extremes of body size, muscle mass, or nutritional status, or are non- or non-. According to the National Kidney Foundation, irrespective of diagnosis, the stage of the disease is based on the level of kidney function: Stage Description GFR(mL/min/1.73 m(2)) 1 Kidney damage with normal or decreased GFR 90 2 Kidney damage with mild decrease in GFR 60-89 3 Moderate decrease in GFR 30-59 4 Severe decrease in GFR 15-29 5 Kidney failure <15 (or dialysis) 7 >100 to <200 pg/mL: likely compensated congestive heart failure (CHF) 200 to 400 pg/mL: likely moderate CHF >400 pg/mL: likely moderate to severe CHF 8 NOTE: Critical Troponin is now >0.03 ng/mL. 99th percentile=0.04 ng/mL Troponin results at [facility] and [facility] are not interchangeable. 9 RESULTS VERIFIED BY REPEAT ANALYSIS 10 Patient Insurance Clerk: [id number] [employer] 11 consistent w/ previous results 12 consistent w/ previous results 13 consistent w/ previous results 14 RESULTS VERIFIED BY REPEAT ANALYSIS 15 consistent w/ previous results 16 FASTING 17 Acute inflammation: >10.00 18 result ryley'd 19 result ryley'd 20 Less Than 1.0......Low Risk of Cardiovascular Disease 1.0-3.0............Medium Risk (<2 Fold Increase) Greater Than 3.0...High Risk (Approximately 2-Fold Increase) 21 RESULT RYLEY'D 22 RESULT RYLEY'D 23 result ryley'd 24 result ryley'd 25 result ryley'd 26 result ryley'd 27 ---- RUN DATE: 02/23/09 [facility] NMI LIVE PAGE 1 RUN TIME: 1541 Specimen Inquiry RUN USER: INTERFACE -- Name: CHANO WYNNE Status: REG REF Re02/21/09 Age/Sex: 38/M Unit#: [id number] Location: [facility] : 71 -- Specimen: [id number] [facility] Spec Date: 02/21/[address]: Ignacio hickman MD Spec Type: SURGICAL P Received: 02/22/09-1118 Copies to: Easton ren MD SPECIMEN SCALP LESION HISTORY CLINICAL INFORMATION: Present over one month, sore and larger GROSS DESCRIPTION The specimen is received in formalin labelled Chano Wynne, Scalp Lesion, and consists of a skin specimen with dermis and attached cystic structure measuring 1.7 x 0.8 x 1.5 cm. The skin is unremarkable. The specimen is trisected and submitted entirely in one cassette. DIAGNOSIS Skin, scalp, excision: Apocrine cystadenoma. Signed Electronically by: ORLANDO QUINONEZ 02/23/09 1541 -- -- DEPARTMENT OF PATHOLOGY, [address] [place] [address] [facility] Permit #[id number] Walter Mena M.D. Director Orlando Quinonez M.D. Dispatcher Refinery Dir maurice -- 28 FASTING 29 RESULT YRLEY'D 30 FASTING; 1 SST TUBE 31 . hs-CRP Result (mg/L) Risk Level <1.0 Low 1.0-3.0 Average >3.0 High Patients with persistently unexplained, marked elevation of hs-CRP (greater than 10 mg/L) after repeated testing should be evaluated for non-cardiovascular etiologies. . 32 BLEEDING TIME MAY BE PROLONGED BY ANY OF THESE DRUG: ASPIRIN, TYLENOL, IBUPROFEN. Procedures Date CPT Code Description Status 11/16/2016 28027 Blood Pressure Monitoring Completed 05/07/2012 91702 Vision Test- screening test of visual acuity, Completed quantitative, bila 07/12/2010 81795 Electrocardiogram Complete Completed 10/07/2006 55261 Pulse Oximetry Completed Encounters Type Date Location Provider CPT E/M Dx Office Visit 08/05/2018 7:30p Main Office DAYLIN Parker 35703 R10.32 K57.92 Office Visit 06/10/2018 9:00a Main Office DAYLIN Parker 25311 E78.4 E11.9 R03.0 E66.3 Office Visit 11/16/2016 4:30p [facility] Easton Rock M.D. 84433 R03.0 Office Visit 11/03/2016 9:45a [facility] Office Easton Rock M.D. 17159 E78.4 J01.00 R03.0 E11.9 Office Visit 09/14/2015 11:20a [facility] Office Easton Rock M.D. 49289 E78.2 Z23 Office Visit 03/09/2015 2:00p [facility] Easton Rock M.D. 90919 V70.0 272.4 Office Visit 12/07/2014 10:30a Main Office Lana Argueta 79760 466.0 Office Visit 12/03/2014 2:00p Main Office DAYLIN Garcia 71392 487.8 Office Visit 09/22/2013 8:00a [facility] Office Easton Rock M.D. 16067 272.4 571.8 477.9 Office Visit 06/22/2013 10:00a [facility] Easton Rock M.D. 96003 272.4 790.29 477.9 Office Visit 05/07/2012 4:20p [facility] Office Easton Rock M.D. 12454 V70.0 272.4 477.9 V76.41 V72.0 Office Visit 09/20/2010 2:30p [facility] Easton Rock M.D. 73688 272.4 Office Visit 07/12/2010 9:40a [facility] Office Easton Rock M.D. 80205 V70.0 272.4 786.09 Office Visit 10/15/2009 9:45a Main Office DAYLIN Garcia 94283 466.0 Office Visit 02/12/2009 11:00a Main Office Lana Argueta 24520 535.00 Office Visit 02/11/2009 4:15p Main Office Lana Argueta 54805 706.2 Office Visit 11/10/2008 1:00p [facility] Easton Rock M.D. 43178 V70.0 272.4 V06.5 599.70 Office Visit 12/31/2007 2:45p [facility] Office Lana Esquivel 17568 780.6 487.8 Office Visit 10/25/2007 12:30p Main Office Rosas Chacon M.D. 71183 466.0 Office Visit 11/19/2006 1:00p [facility] Office Lana Argueta 00922 465.9 466.0 Office Visit 11/02/2006 11:30a Main Office Lana Esquivel 49284 528.09 Office Visit 10/07/2006 2:20p [facility] Office Easton Rock M.D. 20581 466.0 Office Visit 02/07/2006 8:00p Main Office Easton Rock M.D. 18065 272.4 Office Visit 12/20/2005 7:20p Main Office Easton Rock M.D. 48082 V70.0 477.9 V17.4 V19.5 V76.41 Office Visit 10/04/2005 9:00a Main Office LORETO Fragoso 82364 465.9 110.9 Office Visit 08/17/2003 9:00a Main Office DAYLIN Garcia 79022 490 Office Visit 08/04/2003 9:00a [facility] Office Easton Rock M.D. 33981 477.8 372.13 Office Visit 02/10/2003 4:15p Main Office Easton Rock M.D. 91906 840.4 Office Visit 02/06/2003 11:50a Main Office Joe Carcamo M.D. 74023 719.41 701.9 Office Visit 11/07/2001 4:15p [facility] Office DAYLIN Garcia 36537 Office Visit 04/07/2001 2:00p [facility] Office Lana Argueta 08456 Plan of Care Future Appointment(s):10/10/2018 4:00 pm - Luba Pak NP at [facility] Lywegw4811/06/2018 4:30 pm - Easton Rock M.D. at [facility] Eubzor8910/08/2018 - Luba Pak, NPK57.32 Dvtrcli of lg int w/o perforation or abscess w/o bleedingNew Medication:Amoxicillin/Clavulanate Potassium 875-125 mgComments: Stick to a clear liquid diet until pain improves. Come back on Saturday for a recheck.AllComments:1. Patient has been queried about patient's goals/ preferences and functional/lifestyle goals at relevant visits. If relevant, describe: Has been discussed, noted above2. Treatment goals as explainedto the patient: see above3. Are there barriers to meeting treatment goals? Yes If Yes, please describe: Barriers include possible insurance limits, disease process, and difficulty with lifestyle changes4. Self-Management goals as described to the patient: Yes, see above As always, we strongly encourage a healthy diet and making physical activity a part of your every day life. If you have questions about how or where to start, please contact the office.
[2018-11-06] MEDS ORDERED: NS 0.9% 1000 ML* 1,000 ML IV ONE (23:24)
[2018-11-06 23:48] LABS: ABS Basophils 0.1 10^3/ul (0-0.2); ABS Eosinophils 0.2 10^3/ul (0-0.6); ABS Lymphocytes 2.1 10^3/ul (1.0-4.8); ABS Monocytes 0.9 10^3/ul (0-0.8); ABS Neutrophils 5.8 10^3/ul (1.5-7.7); ABS Nucleated RBC 0 10^3/ul; Eosinophil % 2.7 %; Hematocrit 41 % (42-52); Lymphocyte % 23.3 %; Mean Corpuscular HGB Conc 34 g/dl (31-36); Mean Corpuscular Hemoglobin 31 pg (27-31); Mean Corpuscular Volume 89 fL (80-94); Nucleated Red Blood Cells % 0; Platelet Count 207 10^3/ul (150-450); Red Blood Count 4.57 10^6/ul (4.00-5.40); Red Cell Distribution Width 13 % (10.5-15); White Blood Count 9.1 10^3/ul (3.5-10.8)
[2018-11-07 00:08] LABS: EGFR Non-African American 90.4 (>60)
[2018-11-07] MEDS ORDERED: Iodixanol* (CONTRAST) 320 MG/ML 100 ML SDV IV ONE (00:17)
--- NOTE | 2018-11-07 00:24 | ED ---
Abdominal Pain/Male - HPI Summary HPI Summary: Patient complains of sudden onset left lower quadrant pain this afternoon, getting worse at night. States pain is worse with movement, described as constant with spikes of pain. Denies fever, cough, sore throat, CP, SOB, N/V/D , change in urine, change in BM. History of diverticulitis, states this is presenting with same symptoms. Medical history is DM, HDL. Abdominal surgical history is none. - History of Current Complaint Chief Complaint: EDAbdPain Stated Complaint: ABDOMINAL PAIN Time Seen by Provider: 11/06/18 22:43 Hx Obtained From: Patient Onset/Duration: Sudden Onset Timing: Constant Severity Initially: Moderate Severity Currently: Moderate Pain Intensity: 5 Pain Scale Used: 0-10 Numeric Location: Discrete At: LLQ Radiates: No Aggravating Factor(s): Movement Alleviating Factor(s): Nothing Associated Signs And Symptoms: Positive: Negative - Allergies/Home Medications Allergies/Adverse Reactions: Allergies Allergy/AdvReac Type Severity Reaction Status Date / Time SEAONAL Allergy Coughing Uncoded 07/31/18 20:39 PMH/Surg Hx/FS Hx/Imm Hx Endocrine/Hematology History: Reports: Hx Diabetes - DM 2 Denies: Hx Anticoagulant Therapy, Hx Thyroid Disease Cardiovascular History: Denies: Hx Hypertension Respiratory History: Denies: Hx Asthma, Hx Chronic Obstructive Pulmonary Disease (COPD) GI History: Denies: Hx Ulcer History: Denies: Hx Dialysis, Hx Renal Disease Neurological History: Denies: Hx CVA Psychiatric History: Denies: Hx Autism - Surgical History Surgery Procedure, Year, and Place: TONSILECTOMY age 32. HERNIA REPAIR age 3 Infectious Disease History: No Infectious Disease History: Denies: Hx Clostridium Difficile, Hx Hepatitis, Hx Human Immunodeficiency Virus (HIV), Hx of Known/Suspected MRSA, Hx Shingles, Hx Tuberculosis, Hx Known/ Suspected VRE, Hx Known/Suspected VRSA, History Other Infectious Disease, Traveled Outside the [place] in Last 30 Days - Family History Known Family History: Positive: Hypertension, Diabetes, Other - Father brain aneurysm at age 41 - Social History Alcohol Use: Occasionally Substance Use Type: Reports: None Smoking Status (MU): Former Smoker Have You Smoked in the Last Year: No Review of Systems Constitutional: Negative Eyes: Negative ENT: Negative Cardiovascular: Negative Respiratory: Negative Positive: Abdominal Pain Genitourinary: Negative Musculoskeletal: Negative Skin: Negative Neurological: Negative Psychological: Normal All Other Systems Reviewed And Are Negative: Yes Physical Exam - Summary Physical Exam Summary: Abdominal tenderness left lower quadrant. Abdominal exam otherwise unremarkable. Triage Information Reviewed: Yes Vital Signs On Initial Exam: Initial Vitals Temp Pulse Resp BP Pulse Ox 97 F 70 20 176/90 97 11/06/18 22:10 11/06/18 22:10 11/06/18 22:10 11/06/18 22:10 11/06/18 22:10 Vital Signs Reviewed: Yes Appearance: Positive: Well-Appearing Skin: Positive: Warm Head/Face: Positive: Normal Head/Face Inspection Eyes: Positive: Normal Neck: Positive: Supple Respiratory/Lung Sounds: Positive: Clear to Auscultation Cardiovascular: Positive: Normal Abdomen Description: Positive: Other: Musculoskeletal: Positive: Normal Neurological: Positive: Normal Psychiatric: Positive: Normal AVPU Assessment: Alert - Coby Coma Scale Best Eye Response: 4 - Spontaneous Best Motor Response: 6 - Obeys Commands Best Verbal Response: 5 - Oriented Coma Scale Total: 15 Diagnostics - Vital Signs Vital Signs Temp Pulse Resp BP Pulse Ox 11/07/18 00:00 64 97 11/06/18 23:21 74 124/86 97 11/06/18 23:20 63 97 11/06/18 22:10 97 F 70 20 176/90 97 - Laboratory Lab Results: Lab Results 11/06/18 11/06/18 11/06/18 Range/Units 23:38 23:38 23:38 WBC 9.1 (3.5-10.8) 10^3/ul RBC 4.57 (4.00-5.40) 10^6/ul Hgb 14.0 (14.0-18.0) g/dl Hct 41 L (42-52) % MCV 89 (80-94) fL MCH 31 (27-31) pg MCHC 34 (31-36) g/dl RDW 13 (10.5-15) % Plt Count 207 (150-450) 10^3/ul MPV 9.0 (7.4-10.4) fL Neut % (Auto) 63.1 % Lymph % (Auto) 23.3 % Petroleum % (Auto) 10.2 % Eos % (Auto) 2.7 % Baso % (Auto) 0.7 % Absolute Neuts (auto) 5.8 (1.5-7.7) 10^3/ul Absolute Lymphs (auto) 2.1 (1.0-4.8) 10^3/ul Absolute Monos (auto) 0.9 H (0-0.8) 10^3/ul Absolute Eos (auto) 0.2 (0-0.6) 10^3/ul Absolute Basos (auto) 0.1 (0-0.2) 10^3/ul Absolute Nucleated RBC 0 10^3/ul Nucleated RBC % 0 Sodium 139 (135-145) mmol/L Potassium 3.8 (3.5-5.0) mmol/L Chloride 106 (101-111) mmol/L Carbon Dioxide 27 (22-32) mmol/L Anion Gap 6 (2-11) mmol/L BUN 23 (6-24) mg/dL Creatinine 0.90 (0.67-1.17) mg/dL Est GFR ( Amer) 109.4 (>60) Est GFR (Non-Af Amer) 90.4 (>60) BUN/Creatinine Ratio 25.6 H (8-20) Glucose 92 (70-100) mg/dL Lactic Acid 0.7 (0.5-2.0) mmol/L Calcium 8.9 (8.6-10.3) mg/dL Total Bilirubin 0.40 (0.2-1.0) mg/dL AST 16 (13-39) U/L ALT 20 (7-52) U/L Alkaline Phosphatase 54 (34-104) U/L C-Reactive Protein 12.86 H (<8.01) mg/L Total Protein 6.7 (6.4-8.9) g/dL Albumin 4.0 (3.2-5.2) g/dL Globulin 2.7 (2-4) g/dL Albumin/Globulin Ratio 1.5 (1-3) Lipase 96 H (11.0-82.0) U/L Result Diagrams: 11/06/18 23:38 11/06/18 23:38 Lab Statement: Any lab studies that have been ordered have been reviewed, and results considered in the medical decision making process. Abdominal Pain Fem Course/Dx - Course Course Of Treatment: Patient complains of sudden onset left lower quadrant pain this afternoon, getting worse at night. States pain is worse with movement, described as constant with spikes of pain. Denies fever, cough, sore throat, CP , SOB, N/V/D, change in urine, change in BM. History of diverticulitis, states this is presenting with same symptoms. Medical history is DM, HDL. Abdominal surgical history is none. Physical exam:Abdominal tenderness left lower quadrant. Abdominal exam otherwise unremarkable. Vital signs within normal limits and stable. Labs unremarkable. - Diagnoses Provider Diagnoses: Diverticulitis Discharge - Sign-Out/Discharge Documenting (check all that apply): Patient Departure - Discharge Plan Condition: Stable Disposition: HOME Patient Education Materials: Diverticulitis (ED) Referrals: Easton Rock MD [Primary Care Provider] - Lalo Coleman DO [Doctor of Osteopathy] - Additional Instructions: Take antibiotics as directed. Return to the ED for any new or worsening symptoms. - Billing Disposition and Condition Condition: STABLE Disposition: Home
[2018-11-07] MEDS ORDERED: HYDROcodone/ACETAMIN 5-325 MG* 1 TAB PO ONE (02:03)
[2018-11-07] MEDS ORDERED: Ciprofloxacin TAB* 500 MG PO ONE (02:03)
[2018-11-07] MEDS ORDERED: metroNIDAZOLE TAB* 250 MG PO ONE (02:03)
[2018-11-07 02:32] VITALS: BP 127/93
== END 2018-11-07 02:37 | disposition home or self-care (01) ==
LOC: ED 22:08
DX: K57.92 Diverticulitis of intestine, part unspecified, without perforation or abscess without bleeding (principal); R10.32 Left lower quadrant pain; Z87.891 Personal history of nicotine dependence
CPT/HCPCS: 36415; 74177; 80053; 83605; 83690; 85025; 86140; 96360; 96361; 99283; A9270-GY; Q9967

== ENCOUNTER 2019-01-09 12:30 | Inpatient (IN) | payer BC ==
--- NOTE | 2018-12-26 13:52 | HP ---
AMENDED REPORT NOW INCLUDES COSIGNER DESIGNATION CC: Dr. Easton Rock; Dr. Amanuel Beltrán * ADMISSION HISTORY AND PHYSICAL: DATE OF ADMISSION: 01/09/19 ATTENDING SURGEON: Dr. Falguni Zaldivar.* (DICTATED BY STEPHEN SWEET) CHIEF COMPLAINT: Diverticulitis. HISTORY OF PRESENT ILLNESS: This is a 48-year-old male who has experienced 3 separate episodes of diverticulitis beginning in early July 2018 with subsequent episodes in September and more recently on 11/06/18. He did have CT scans on at least 2 of those episodes, which confirmed sigmoid diverticulitis without abscess or perforation. He was treated with oral antibiotics with resolution as an outpatient in all 3 cases. He does have a family history of diverticulosis in his mother. There is no family history of colorectal cancer. He was seen in the office by Dr. Zaldivar on 12/10/18. She discussed with him the recommendations and indications for surgery. He is scheduled for a colonoscopy with Dr. Beltrán on 12/31/18. He understands the indications for surgery, the risks, benefits, and alternatives, and would like to proceed as scheduled with laparoscopic sigmoid colectomy. He will complete standard mechanical and oral antibiotics bowel prep as well as receive standard IV prophylactic antibiotics. He has an understanding of the expected perioperative course. PAST MEDICAL HISTORY: Type 2 diabetes (largely improved/resolved since weight loss of 55 pounds, though he is still maintained on metformin), hyperlipidemia, obesity. PAST SURGICAL HISTORY: Include hernia repair as a child and tonsillectomy in his 30s. No reported surgical or anesthesia problems other than some postoperative bleeding from the tonsillectomy. CURRENT MEDICATIONS: 1. Atorvastatin 20 mg once daily. 2. Metformin 500 mg 2 tablets once daily. 3. Lisinopril 2.5 mg once daily. DRUG ALLERGIES: None. FAMILY HISTORY: Negative for anesthesia problems, bleeding or clotting disorders. 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 He drinks on an average 3 drinks per week and denies other recreational drug use. REVIEW OF SYSTEMS: General: No recent constitutional symptoms or acute illnesses other than described in the HPI. His diverticulitis episodes were characterized by left lower quadrant pain as well as constipation alternating with diarrhea. He denies any blood per rectum. HEENT: No problems reported. Cardiovascular: No chest pain, palpitations, history of hypertension, or heart murmur. Respiratory: No history of asthma, chronic cough, or shortness of breath. GI: As above per HPI. No additions. : No problems reported. Endocrine: Type 2 diabetes with improvement after weight loss. His most recent A1c was 5.4. No history of thyroid dysfunction. Remainder of review of systems is negative. PHYSICAL EXAMINATION GENERAL: Well-nourished, mildly obese male, in no acute distress. VITAL SIGNS: Height 67.5 inches, weight 184 pounds. Blood pressure 118/70, pulse 68, respirations 16. HEENT: Pupils are equal, round, reactive. EOMs intact. No conjunctival pallor. Oropharynx: Teeth in good repair. No intraoral lesions. NECK: No lymphadenopathy, thyromegaly, or masses. LUNGS: Clear to auscultation. No wheezes. HEART: Regular rate and rhythm. No murmur. ABDOMEN: Soft, nontender to palpation, no palpable masses or organomegaly. EXTREMITIES: No edema. GENITALIA AND RECTAL: Not done. BACK: No spinous process or CVA tenderness. NEUROLOGICAL: Grossly intact. SKIN: Warm and dry, no suspicious rashes or lesions noted. IMPRESSION: Diverticulitis. PLAN/RECOMMENDATIONS: Laparoscopic sigmoid colectomy. STEPHEN SWEET [id number]/[facility] [place] #: [id number] MTDD
--- NOTE | 2019-01-22 18:12 | HP ---
CC: Dr. Easton Rock; Dr. Amanuel Beltrán * ADMISSION HISTORY AND PHYSICAL: DATE OF ADMISSION: 01/30/19 ATTENDING SURGEON: Dr. Falguni Zaldivar.* (DICTATED BY STEPHEN SWEET) CHIEF COMPLAINT: Recurrent diverticulitis. HISTORY OF PRESENT ILLNESS: This is a 48-year-old male who has experienced multiple episodes of diverticulitis beginning in early July 2018. He had subsequent episodes in September and October and then had a very limited episode just prior to being scheduled for surgery the week before 01/09/19. This occurred following his preoperative colonoscopy on 12/31/18. He initiated ciprofloxacin and Flagyl on 01/01/19 and completed a 10-day course. He had pain in left lower quadrant for a total of 2 to 3 days without associated fever or other constitutional symptoms. He has been off antibiotics for at least a week to 10 days and has felt fine with no symptoms of abdominal pain, fever, or chills. His colonoscopy was notable for diverticulosis with 1 area of focal erythema. The area proximal was tattooed by Dr. Beltrán. There is also a small lesion in the distal ileum which was removed and was benign. There is a family history of diverticulosis in his mother. There is no family history of colorectal cancer. He was seen initially in the office by Dr. Zaldivar on 12/10/18. She discussed with him the recommendations and indications for surgery. He understands the indications, risks, benefits, and alternatives and would like to proceed as scheduled with laparoscopic sigmoid colectomy. He will complete standard mechanical and oral antibiotics, bowel prep as well as received standard IV prophylactic antibiotics. He would like to proceed as scheduled. PAST MEDICAL HISTORY: Type 2 diabetes (largely improved/resolved since weight loss of 55 pounds, though he is still maintained on metformin), hyperlipidemia, obesity. PAST SURGICAL HISTORY: Hernia repair as a child, tonsillectomy in his 30s. No reported surgical or anesthesia problems other than some postoperative bleeding from the tonsillectomy. CURRENT MEDICATIONS: 1. Atorvastatin 20 mg once daily. 2. Metformin 500 mg 2 tablets once daily. 3. Lisinopril 2.5 mg once daily. DRUG ALLERGIES: None. FAMILY HISTORY: Negative for anesthesia problems, bleeding, or clotting disorders. 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 He drinks on an average of 3 drinks per week and denies other recreational drug use. REVIEW OF SYSTEMS: General: No recent constitutional symptoms or acute illnesses other than described in the HPI. He is currently asymptomatic. HEENT : No problems reported. Cardiovascular: No chest pain, palpitations, or history of heart murmur. History of hypertension. Respiratory: No history of asthma, chronic cough, or shortness of breath. GI: As above per HPI. No additions. : No problems reported. Endocrine: Type 2 diabetes with improvement after weight loss. His most recent A1c was 5.4. No history of thyroid dysfunction. The remainder of review of systems is negative. PHYSICAL EXAMINATION GENERAL: Well-nourished, mildly obese male, in no acute distress. VITAL SIGNS: Height 67.5 inches, weight 184. Blood pressure 117/70, pulse 72, respirations 16, temperature 97.1. HEENT: Pupils equal, round, and reactive. EOMs intact. No conjunctival pallor. Oropharynx: Teeth in good repair. No intraoral lesions. NECK: No lymphadenopathy, thyromegaly, or masses. LUNGS: Clear to auscultation. No wheezes. HEART: Regular rate and rhythm. No murmur. ABDOMEN: Soft, nontender to palpation. No palpable masses or organomegaly. GENITALIA: Not done. RECTAL: Not done. BACK: No spinous process or CVA tenderness. EXTREMITIES: No edema. NEUROLOGICAL: Grossly intact. SKIN: Warm and dry. No suspicious rashes or lesions noted. IMPRESSION: Recurrent diverticulitis. PLAN: Laparoscopic sigmoid colectomy. STEPHEN SWEET [id number]/[facility] #: [id number] MTDCollette
[2019-01-29] MEDS ORDERED: Buffered Lidocaine 1% SYRIN* 1 ML/SYRINGE INTRADERM ONE (13:52)
[2019-01-30] MEDS ORDERED: ERTApenem(*) 1 GM in NS 0.9% 50 ML* 50 ML IVPB SCH ×2
[2019-01-30] MEDS ORDERED: Lactated Ringers 1000 ML Bag* 1,000 ML IV SCH ×2 (06:00→18:00)
[2019-01-30] MEDS ORDERED: Famotidine IV* 10 MG/ML 2 ML (20 mg) IV ONE (06:00)
--- OUTSIDE RECORDS SUMMARY | 2019-01-30 10:39 | XMS REPORT | Continuity of Care Document ---
:1970 External Reference #:[id number] Author Name Maria Del Rosario Morales Care Team Providers Name Role Phone Easton Rock MD Primary Care Physician Unavailable Payers Date Identification Numbers Payment Provider Subscriber Effective: 2011 Policy Number: [id number] [employer] Chano Wynne PayID: [id number] [address] [address] [place] [id number] Advance Directives Description No Information Available Problems Date Description Provider Status Onset: 11/26/2013 Shoulder joint pain Osvaldo Lozano M.D. 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 ETOH Use Drinks 4 Alcoholic 2-3 glasses of wine Beverages Per Week Tobacco Use Start: Unknown End: Patient is a former quit 1994 Unknown smoker Smoking Status Reviewed: 01/22/19 Patient is a former quit 1994 smoker Exercise Type/Frequency Exercises regularly Allergies, Adverse Reactions, Alerts Description No Known Drug Allergies Medications Medication Date Status Form Strength Qnty SIG Indications Ordering Provider Flagyl 01/01/20 Active Tablets 500mg 3tabs 1 tab by Jaci Zaldivar 19 mouth at 1:00 Foster, at night & MD 7:00 at night the day before surgery and at 7:00 in the morning the day of surgery Neomycin 01/01/20 Active Tablets 500mg 6tabs 2 tabs by Jaci Zaldivar Sulfate 19 mouth at 1:00 Foster, at night & 7:00 at night the day before surgery, and at 7:00 in the morning the day of surgery Peg 01/01/20 Active Solution 240gm 4000m as directed Jaci Zen 3350/Electrol 19 Rec l the day poncho Tilley before MD surgery Suprep Bowel 12/10/19 Active Solution 17.5-3.13 354un Take Peter T. Prep Kit 19 -1.6GM/17 its according to Jerel, 7ML your MD physician's instructions the night before the procedure. Split the dose as directed. Atorvastatin Active Tablets 20mg 1 tab by Vu, Calcium 00 mouth daily DAYLIN Hunter Metformin HCL Active Tablets 500mg 2 pills once Unknown 00 a day by mouth Lisinopril Active Tablets 2.5mg 1 by mouth Unknown 00 every day Cipro 10/28/20 Hx Tablets 500mg 20tab take twice Malu 18 - s daily for 10 Bradley, FOLDER OPERATOR Unknown days Flagyl 10/28/20 Hx Tablets 500mg 10tab take one pill Malu 18 - s every 8 hours Bradley, FOLDER OPERATOR Unknown for 10 days Medications Administered in Office Medication Date Status Form Strength Qnty SIG Indications Ordering Provider Depomedrol Administered Injection Osvaldo 80MG 012 Syd Lozano Immunizations Description No Information Available Vital Signs Date Vital Result Comment 01/22/2019 1:25pm Heart Rate 72 /min BP Systolic 117 mmHg BP Diastolic 70 mmHg Respiratory Rate 16 /min Body Temperature 97.1 F 12/26/2018 9:34am Height 67.5 inches 5'7.50" Weight 184.00 lb Heart Rate 68 /min BP Systolic 118 mmHg BP Diastolic 70 mmHg Respiratory Rate 16 /min Body Temperature 97.1 F BMI (Body Mass Index) 28.4 kg/m2 12/10/2018 1:08pm Height 67.5 inches 5'7.50" Weight 184.00 lb Heart Rate 66 /min BP Systolic Sitting 124 mmHg BP Diastolic Sitting 88 mmHg Respiratory Rate 16 /min Body Temperature 97.3 F BMI (Body Mass Index) 28.4 kg/m2 10/14/2018 4:15pm Height 68 inches 5'8" Weight [...] BMI (Body Mass Index) 34.1 kg/m2 Results Test Date Facility Test Result H/L Range Note Laboratory test 12/31/2018 [facility] Surgical SEE RESULT 1 , [address] [place] [address] [phone] CBC Auto Diff 12/26/2018 [facility] White Blood 5.0 10^3/uL N 3.5-10.[address] [place] [address] [phone] Red Blood Count 4.90 10^6/uL N 4.00-5.40 Hemoglobin 14.9 g/dL N 14.0-18.0 Hematocrit 45 % N 42-52 Mean Corpuscular Volume 92 fL N 80-94 Mean Corpuscular Hemoglobin 30 pg N 27-31 Mean Corpuscular HGB Conc 33 g/dL N 31-36 Red Cell Distribution Width 13 % N 10.5-15 Platelet Count 186 10^3/uL N 150-450 Mean Platelet Volume 9.4 fL N 7.4-10.4 Abs Neutrophils 2.3 10^3/uL N 1.5-7.7 Abs Lymphocytes 1.9 10^3/uL N 1.0-4.8 Abs Monocytes 0.6 10^3/uL N 0-0.8 Abs Eosinophils 0.1 10^3/uL N 0-0.6 Abs Basophils 0 10^3/uL N 0-0.2 Abs Nucleated RBC 0 10^3/uL Granulocyte % 45.7 % Lymphocyte % 38.5 % Monocyte % 12.9 % Eosinophil % 2.1 % Basophil % 0.8 % Nucleated Red Blood Cells % 0.1 Basic Metabolic Panel 12/26/2018 [facility] Sodium 141 mmol/L N 135-[address] [place] [address] [phone] Potassium 4.3 mmol/L N 3.5-5.0 Chloride 106 mmol/L N 101-111 Co2 Carbon Dioxide 31 mmol/L N 22-32 Anion Gap 4 mmol/L N 2-11 Glucose 94 mg/dL N 70-100 Blood Urea Nitrogen 20 mg/dL N 6-24 Creatinine 0.92 mg/dL N 0.67-1.17 BUN/Creatinine Ratio 21.7 High 8-20 Calcium 9.4 mg/dL N 8.6-10.3 Egfr Non- 88.2 >60 Egfr 106.7 >60 4 Type & Screen 12/26/2018 [facility] Patient Blood Type A Positive [address] [place] [address] [phone] Antibody Screen NEGATIVE 1 [id number] 2 SEE RESULT BELOW Name: CHANO WYNNE : [address]: Amanuel Beltrán MD Acct: [id number] Unit: [id number] AGE: 48 Location: [facility] Re12/31/18 SEX: M Status: DEP REF SPEC: [id number] ELIO: 12/31/18-[address] [facility] [address]: Amanuel Beltrán MD REQ: [id number] RECD: 12/31/18-1620 STATUS: MONICA BEAS[facility] DR: Easton Rock MD _ ORDERED: LEVEL 4 COMMENTS: [id number] FINAL DIAGNOSIS Small bowel, terminal ileum, biopsy: -- Small bowel mucosa with normal villous architecture and a prominent lymphoid aggregate. POST-OPERATIVE DIAGNOSIS Colonoscopy to cecum with ease; terminal ileum (1) nodule; conclusion/plan: sigmoid diverticulosis (tattoo), ileal nodule GROSS DESCRIPTION The specimen is received in formalin labeled, Terminal Ileum Polyp Biopsy, and consists of a 0.4 x 0.3 x 0.3 cm perales-pink irregular to polypoid soft tissue fragment which is submitted entirely in one cassette. Signed by and Reported on: Walter Mena MD 06/12 1336 END OF REPORT DEPARTMENT OF PATHOLOGY, [address] [place] [address] Walter Mena M.D. Director [facility] # [id number] 3 DIVERTICULITIS OF INTESTINE, PART UNSPECIFIED, WIT 4 Because ethnic data is not always readily [...] 15-29 5 Kidney failure <15 (or dialysis) Procedures Date Code Description Status 12/31/2018 37384 Colonoscopy,W/Directed Submucosal Injections, Any Completed Substance 12/31/2018 72183 Colonoscopy Flexible W/Biopsy Completed 12/31/2018 [id number] Colonoscopy Completed 10/21/2012 Inject/Drain Joint/Bursa Major W/O US Completed 10/21/2012 Inject Tendon Sheath Or Ligament Aponeurosis Eg Plantar Completed Fascia 09/04/2012 95877 Rad Shoulder Comp, Min. 2 Views Completed Encounters Type Date Location Provider Dx Diagnosis Office Visit 12/10/2018 [facility] Zal[facility] MD K57.92 Dvtrcli of 1:00p Bandoleer Straightener Stamper intest, part unsp, w/o perf or abscess w/o bleed Office Visit 10/14/2018 [facility]astroenter[facility] Malu Bradley, K57.92 Dvtrcli of 3:45p FOLDER OPERATOR intest, part unsp, w/o perf or abscess w/o bleed Office Visit 02/03/2013 [facility] Os[facility]do Lozano 726.2 Shoulder Region 11:45a C.M.A. M.D. Affections Other Not Elsewhere Class Office Visit 11/27/2012 [facility] Thibodeaux6.2 Shoulder Region 3:30p C.M.AMiguel Clifton, Affections Other R.P.A.-C Not Elsewhere Class Office Visit 10/21/2012 [facility] 719.51 Stiffness Joint 8:45a C.M.A. MMiguelDMiguel Not Elsewhere Classified Shoulder Region 726.2 Shoulder Region Affections Other Not Elsewhere Class 719.41 Pain Joint Shoulder Region Office Visit 09/04/2012 8:00a [facility] Osvaldo Lozano 719.51 Stiffness Joint Services [facility] Syd Not Elsewhere C.M.A. Classified Shoulder Region 726.2 Shoulder Region Affections Other Not Elsewhere Class Plan of Treatment Future Appointment(s):01/30/2019 12:00 pm - Ignacio Villagomez MD, FACS at [facility]01/30/2019 12:00 pm - Falguni Zaldivar MD at [facility]01/22/2019 - Kunal Garcia, PAK57.30 Diverticulosis of large intestine without perforation or abscess without jbsnxjeoJ77.818 Encounter for other preprocedural examination
[2019-01-30] MEDS ORDERED: Famotidine IV* 10 MG/ML 2 ML (20 mg) ONE (10:58)
[2019-01-30] MEDS ORDERED: Heparin VIAL(*) 5000 UNITS/ML VIAL (FIVE THOUSAND) ONE (10:58)
[2019-01-30] MEDS ORDERED: Ketorolac INJ* 30 MG/ML 1 ML VIAL ONE (13:00)
[2019-01-30] MEDS ORDERED: Lidocaine 2% PF * 5 ML VIAL ONE (13:00)
[2019-01-30] MEDS ORDERED: Dexamethasone IV* 4 MG/ML 1 ML (4 MG) ONE (13:00)
[2019-01-30] MEDS ORDERED: Ondansetron INJ* 2 MG/ML VIAL ONE (13:00)
[2019-01-30] MEDS ORDERED: Propofol* 10 MG/ML 20 ML BTL ONE (13:00)
[2019-01-30] MEDS ORDERED: fentaNYL* 50 MCG/ML 5 ML VIAL (250 MCG VIAL) ONE (13:01)
[2019-01-30] MEDS ORDERED: Midazolam* 1 MG/ML 5 ML VIAL (5 MG) ONE (13:01)
[2019-01-30] MEDS ORDERED: Rocuronium* 10 MG/ML VIAL ONE (13:01)
[2019-01-31] MEDS ORDERED: Bupivacaine 0.25% SDV PF* 10 ML VIAL INJ ONE (07:20)
[2019-01-31] MEDS ORDERED: Midazolam* 1 MG/ML 5 ML VIAL (5 MG) ONE (07:41)
[2019-01-31] MEDS ORDERED: fentaNYL* 50 MCG/ML 5 ML VIAL (250 MCG VIAL) ONE (07:41)
[2019-01-31] MEDS ORDERED: Lidocaine 2% PF * 5 ML VIAL ONE (07:42)
[2019-01-31] MEDS ORDERED: Propofol* 10 MG/ML 20 ML BTL ONE (07:42)
[2019-01-31] MEDS ORDERED: Rocuronium* 10 MG/ML VIAL ONE ×2 (07:42→10:34)
[2019-01-31] MEDS ORDERED: Ketorolac INJ* 30 MG/ML 1 ML VIAL IV PRN (07:57)
[2019-01-31] MEDS ORDERED: Acetaminophen IV 1GM/100ML * 1,000 MG/100 ML VIAL IVPB ONE (07:57)
[2019-01-31] MEDS ORDERED: Scopolamine 1.5 mg* PATCH TRANSDERM PRN (07:57)
[2019-01-31] MEDS ORDERED: Naloxone* 0.4 MG/ML 1 ML VIAL IV PRN (07:57)
[2019-01-31] MEDS ORDERED: PROCHLORPERAZINE INJ 5 MG/ML 2 ML VIAL IV PRN (07:57)
[2019-01-31] MEDS ORDERED: Ertapenem* 1 GM in NS 0.9% 50 ML* 50 ML IVPB ONE (08:00)
[2019-01-31] MEDS ORDERED: Heparin VIAL(*) 5000 UNITS/ML VIAL (FIVE THOUSAND) ONE (08:17)
[2019-01-31] MEDS ORDERED: EPHEDrine (Pressors)* 50 MG/ML VIAL ONE (08:35)
[2019-01-31] MEDS ORDERED: Phenylephrine INJ* 10 MG/ML 1 ML VIAL (10 MG) ONE (08:44)
[2019-01-31] MEDS ORDERED: fentaNYL* 50 MCG/ML 2 ML VIAL (100 MCG VIAL) ONE ×5 (09:34→16:48)
[2019-01-31] MEDS ORDERED: Ondansetron INJ* 2 MG/ML VIAL ONE (15:01)
[2019-01-31] MEDS ORDERED: Neostigmine Methylsulfate* 3 MG/3 ML SYRINGE ONE (15:05)
[2019-01-31] MEDS ORDERED: Ketorolac INJ* 30 MG/ML 1 ML VIAL ONE (15:07)
[2019-01-31] MEDS ORDERED: Acetaminophen IV 1GM/100ML * 100 ML ONE (15:07)
[2019-01-31] MEDS ORDERED: Ondansetron INJ* 2 MG/ML VIAL IV PRN (16:32)
[2019-01-31] MEDS ORDERED: PROCHLORPERAZINE INJ 5 MG/ML 2 ML VIAL ONE (16:35)
[2019-01-31] MEDS ORDERED: Scopolamine 1.5 mg* PATCH ONE (16:35)
[2019-01-31] MEDS ORDERED: Piperacillin/Tazobac ADVAN(*) 3.375 GM in NS 0.9% 100 ML* 100 ML IVPB ONE (16:42)
[2019-01-31] MEDS: fentaNYL* 50 MCG/ML 2 ML VIAL (100 MCG VIAL) IV PRN ×2 (16:49→16:59)
[2019-01-31] MEDS ORDERED: Zosyn per Pharmacy* NOTE FOLLOW UP SCH (17:00)
[2019-01-31] MEDS ORDERED: Naloxone* 0.4 MG/ML 1 ML VIAL IV PUSH PRN (17:06)
[2019-01-31] MEDS ORDERED: HYDROmorphone PCA* 20 MG/20 ML PCA.SYRING PCA SCH (18:00)
[2019-01-31] MEDS: D5W 1/2 NS 1000 ML BAG* 1,000 ML IV SCH (18:13)
[2019-01-31] MEDS ORDERED: HYDROmorphone INJ1* 1 MG/ML SYRINGE IV SLOW PU PRN (20:21)
[2019-01-31] MEDS: Heparin VIAL(*) 5000 UNITS/ML VIAL (FIVE THOUSAND) SUBCUT SCH (21:30)
[2019-01-31] MEDS: ZOSYN 3.375 GM Q8H per EXTENDED INFUSION IVPB SCH ×2 (21:31)
--- NOTE | 2019-02-01 03:11 | CONS ---
CC: Dr. Easton Rock; Dr. Falguni Zaldivar * CONSULTATION REPORT: DATE OF CONSULT: 01/31/19 PRIMARY CARE PROVIDER: Dr. Easton Rock. CONSULTING PHYSICIAN: Dr. Falguni Zaldivar. MY ATTENDING WHILE IN THE HOSPITAL: Dr. Pawel Nava. REASON FOR CONSULTATION: Comanagement of comorbid medical conditions. HISTORY OF PRESENT ILLNESS: Mr. Wynne is a 48-year-old male with past medical history significant for diabetes mellitus, essentially resolved after weight loss, hyperlipidemia, hypertension and recurrent diverticulitis, for which he has just underwent an elective partial colectomy. The patient preoperatively was not having any symptoms. No recent illnesses. No exposure to the patient's flu. No recent changes in medications. The patient is on metformin, lisinopril, and Lipitor. The patient most recently took his lisinopril in the morning of 01/28/19 and his metformin in the evening of . The patient has taken his Lipitor up to this point. The patient has no recent symptoms of heart failure including dyspnea on exertion, chest pain, orthopnea, or lower extremity edema. The patient had no preoperative dysuria, abdominal pain, or diarrhea, not associated with his bowel prep. The patient had preoperative labs which were entirely unremarkable. Intraoperatively, his surgery was complicated by a small laceration to his bladder, which was able to be oversewed and an anastomotic leak which was also able to be fixed. The patient postoperatively is having moderate abdominal pain, well controlled by his REEL ASSEMBLER. The patient had no fevers, chills, nausea, or vomiting. The patient has no appetite. The patient has no chest pain or shortness of breath. The patient has no complaints. PAST MEDICAL HISTORY: Diabetes mellitus type 2, hypertension, hyperlipidemia, recurrent diverticulitis. PAST SURGICAL HISTORY: Hernia repair, tonsillectomy, partial colectomy. MEDICATIONS: 1. Lipitor 10 mg p.o. daily. 2. Metformin 1000 mg p.o. q.p.m. 3. Lisinopril 2.5 mg p.o. q.a.m. ALLERGIES: Seasonal. FAMILY HISTORY: The patient's mother is alive and well, has hypertension and diverticulosis. The patient's father of an aneurysm. The patient's sister with thyroid disease. He has another sister with an aneurysm and has a brother with high cholesterol. SOCIAL HISTORY: The patient has never smoked. Drinks approximately 2 beers a week. The patient denies illicit drug use. 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 The patient's surrogate decision maker will be his , Pro Wynne. REVIEW OF SYSTEMS: A 14-point review of systems was reviewed and is negative except as above in the HPI. PHYSICAL EXAM: General: The patient is a 48-year-old male who appears stated age and sitting comfortably in bed, in no acute distress. Vital Signs: Temperature 97.2, pulse rate 52, respiratory rate 14, oxygen saturation 98% on 2 L, blood pressure 112/62. HEENT: Head: Normocephalic, atraumatic. Sclerae anicteric. No conjunctival injection. Nasal mucosa moist. Oral mucosa moist. No pharyngeal erythema, discharge, or exudate. Neck: Supple, nontender. No lymphadenopathy. No carotid bruit auscultated. No JVD. Cardiac: Regular rate and rhythm. No clicks, murmurs, gallops, or rubs. Pulses are 2+ in the dorsalis pedis, posterior tibialis, and radial areas. Respiratory: Clear to auscultation bilaterally. No wheezes or rales. Slight rhonchi that were resolved with deep breathing. Abdomen: Laparoscopic puncture sites and ENMANUEL drain without erythema, tender to palpation throughout with involuntary guarding. No hepatosplenomegaly. Hypoactive bowel sounds. No abdominal bruits auscultated. Genitourinary: No suprapubic or CVA tenderness. Klein in place, draining orange clear urine. Neuro: Cranial nerves II through XII intact. No focal deficits. Alert and oriented x3. Psychiatric: Pleasant and cooperative. Skin: incisions as above. No other rash. DIAGNOSTIC STUDIES/LAB DATA: Preoperatively, white blood cell count 5.0, hemoglobin 14.9, platelet count 186. Sodium 141, potassium 4.3, chloride 106, carbon dioxide 31, anion gap 4, BUN 20, creatinine 0.92, glucose 184, lactic acid 0.7, calcium 9.4. ASSESSMENT AND PLAN: Impression: Mr. Wynne is a 48-year-old male with past medical history significant only for well-controlled diabetes, hypertension, hyperlipidemia, recurrent diverticulitis, who is currently postoperative for an elective colectomy for recurrent diverticulitis, which was complicated by anastomotic leak and mild bladder laceration, which were repaired intraoperatively. The patient is doing well postoperatively without signs of infection or other complications. 1. Postoperative state. The patient's management per General Surgery. The patient will be advanced to a clear liquid diet in the morning. The patient will have postoperative Zosyn due to anastomotic leak and monitor closely for signs of systemic infection. The patient has a ENMANUEL drain draining serosanguineous drainage. Should be monitored for feculent and purulent material. 2. Minor bladder laceration. This has been oversewed intraoperatively and discussed by the surgeon with Dr. Garcia of Urology, who recommended keeping the Klein in place for 7 days. The patient has no other obvious complications associated with this. 3. Diabetes mellitus type 2. Continue fingersticks q.4 hours, though the patient is n.p.o. If the patient begins to need insulin coverage, this may be added on for a sliding scale, this will not be done at this time. 4. Hypertension. The patient is currently normotensive. Hold the patient's lisinopril in the perioperative period. 5. Hyperlipidemia. Continue the patient's Lipitor when the patient is n.p.o. 6. DVT prophylaxis. The patient is low risk. Continue ROSEANN stockings, SCDs and ambulation as well as heparin subcu q.12 hours. 7. Disposition: Per General Surgery. TIME SPENT: Approximately 45 minutes was spent on this consultation, 25 of which was spent [id number] with the patient, obtaining history and physical and discussing the treatment plan. Plan was discussed with my attending, Dr. Pawel Nava, and he is in agreement. STEPHEN MATTHEWS [id number]/[facility] [place] #: [id number] SURYA
[2019-02-01] MEDS: ZOSYN 3.375 GM Q8H per EXTENDED INFUSION IVPB SCH ×6 (05:42→22:06)
[2019-02-01 06:16] LABS: ABS Basophils 0 10^3/ul (0-0.2); ABS Eosinophils 0 10^3/ul (0-0.6); ABS Lymphocytes 1.5 10^3/ul (1.0-4.8); ABS Neutrophils 4.9 10^3/ul (1.5-7.7); ABS Nucleated RBC 0 10^3/ul; Eosinophil % 0 %; Hematocrit 35 % (42-52); Hemoglobin 12.1 g/dl (14.0-18.0); Lymphocyte % 19.8 %; Mean Corpuscular HGB Conc 35 g/dl (31-36); Mean Corpuscular Hemoglobin 31 pg (27-31); Mean Corpuscular Volume 88 fL (80-94); Mean Platelet Volume 9.2 fL (7.4-10.4); Nucleated Red Blood Cells % 0; Platelet Count 180 10^3/ul (150-450); Red Blood Count 3.95 10^6/ul (4.00-5.40); Red Cell Distribution Width 14 % (10.5-15); White Blood Count 7.4 10^3/ul (3.5-10.8)
[2019-02-01 06:38] LABS: BUN/Creatinine Ratio 11.4 (8-20); Calcium 7.8 mg/dL (8.6-10.3); EGFR African American 112.3 (>60); EGFR Non-African American 92.8 (>60)
[2019-02-01] MEDS: Heparin VIAL(*) 5000 UNITS/ML VIAL (FIVE THOUSAND) SUBCUT SCH ×2 (08:16→22:06)
--- NOTE | 2019-02-01 08:49 | OP ---
DATE OF OPERATION: 01/31/19 - ROOM #347 DATE OF : 72 SERVICE: General Surgery. SURGEON: Falguni Zaldivar MD EXPLOSIVE ORDNANCE DISPOSAL MANAGER: Aguilar Estes MD ANESTHESIOLOGIST: Dr. Ramey. ANESTHESIA: General endotracheal anesthesia. PRE-OP DIAGNOSIS: Recurrent diverticulitis. POST-OP DIAGNOSIS: Recurrent diverticulitis. OPERATIVE PROCEDURE: Laparoscopic sigmoidectomy. SPECIMEN: Sigmoid colon. ESTIMATED BLOOD LOSS: 300 cc. INDICATIONS FOR SURGERY: Mr. Wynne is a very pleasant 48-year-old male with a history of hypertension, diabetes, as well as recurrent diverticulitis since the fall of last year. Given the recurrence of episodes and how debilitated he had been in terms of continued missed work, he wished to undergo an elective laparoscopic sigmoidectomy. Preoperatively, he underwent a colonoscopy, which confirmed diverticulitis and did not show any evidence of malignancy and he underwent a mechanical bowel prep prior to the surgery. He understood the risks , benefits and alternatives to the procedure and he wished to proceed. DESCRIPTION OF PROCEDURE: The patient was brought back to the operating room and placed on the operating table in supine position. Sequential compression devices were placed in the bilateral lower extremities for DVT prophylaxis. Antibiotics and subcutaneous heparin were administered prior to incision. General endotracheal anesthesia was induced. The patient was placed in split- leg position and a pepper catheter was placed. The rectum was irrigated with a solution of Betadine plus normal saline. An digital rectal exam was performed, which showed normal anal sphincter tone as well as no masses in the rectal vault. Next, the abdomen was prepped and draped in normal sterile fashion after tucking both arms. Prior to beginning the surgery a time-out was performed , verifying the patient's name, MR number and the procedure to be performed. A Veress needle was placed at the left upper quadrant and insufflation was obtained to 15 mmHg. After this, the abdomen was entered in the right upper quadrant using a 5-mm Visiport trocar. General inspection of the abdominal cavity with the laparoscope showed that no entry had been made upon entry with the Veress needle. The Veress needle was then removed and additional 5- mm trocars were placed in the abdomen after infiltrating 0.25% Marcaine; one was placed in the right lower quadrant, another in the lower midline, the periumbilical site and in the left lower quadrant. After this was done, the patient was positioned head down and left side up in order to displace the small bowel and omentum into the right upper quadrant. The site of tattooed colon which was above the area of inflammation was noted to be near splenic flexure in the descending colon. There were adhesions of the sigmoid colon to the lateral abdominal wall. The sigmoid colon was elevated and the lateral peritoneal attachments and the white line of Toldt were divided in order to allow for medialization of the sigmoid colon as well as the descending colon. During this mobilization, the ureter was identified and preserved. The sigmoid colon and the descending colon were mobilized all the way up to the splenic flexure. Once the splenic flexure was reached, it was mobilized medially and then the lesser sac was entered through the gastrocolic ligament and the transverse colon mesentry was also swept out inferiorly and from the retroperitoneum in order to meet the area where the splenic flexure had been taken down laterally. Once the splenic flexure was taken down entirely, the sigmoid colon was extremely mobile and attention was turned towards the rectosigmoid junction. The rectosigmoid junction was identified at the point where the teniae appeared to be coalescing and very near below the sacral promontory. The peritoneum was divided on either side of the mesentry and a window was made at the site where the distal resection was going to be performed as selected and the mesentry surrounding it was bluntly dissected and a window was made for placement of the EndoGIA stapler. During this dissection , it was noted that the suprapubic port site had been displaced and that during the displacement air was noted to have entered the Pepper catheter. The 5-mm trocar was removed and examination of the hole showed that there was a small hole through the bladder. Dr. Garcia from Urology was called intraoperatively and had recommended to either keep the patient with Pepper catheter drainage for 7 days or to continue with the Pepper catheter for 7 days as well as repair the peritoneum over the opening in order to allow to heal. Therefore, a 3-0 Vicryl suture was used to close the peritoneum over this small defect intraperitoneally and the Vicryl closed the opening in a [id number] fashion laparoscopically. Once this was done, the skin incision was closed using 4-0 Monocryl sutures and after this there was no more air present in the Pepper catheter. After repairing the peritoneum over this bladder defect, attention was again turned towards the distal resection site. Once an area of mesentry was cleared around the distal resection site, the 5mm RLQ trocar was upsized to a 12mm trocar, and a 60mm EndoGIA stapler purple load was used to staple cross the distal resection site. Once this was done, the mesentry was divided using a LigaSure all the way up to approximately where the proximal colon would be removed. Once this was done, it appeared that there was enough length to bring down a tension-free anastomosis. An additional 5-mm trocar was placed in the lower midline and the infraumbilical port site was extended inferiorly and superiorly and a wound protector was placed to allow removal of the sigmoid colon. The abdomen was desufflated, the sigmoid colon was extracted through the umbilical wound protector site. Inspection and palpation of the sigmoid colon revealed that it was fairly soft; however, there were many areas of diverticuli that appeared to be inflamed and hardened. The area just below the tattooing site was selected as the proximal transection site. There was no diverticulum noted at the transection site. The mesentry was cleared around this area. A purse-string suture passer was placed at the location of the proximal resection site and the colon was divided above this and handed off the table as specimen. Next, a 3-0 Monocryl was then fixed through the purse- string device, which was then taken off and the purse- string appeared to be circumferentially placed around the circumference of the colon. Inspection of the colon showed that again there was no diverticulum or inflammation within the lumen of the proximal colon and then sequential sizers were placed into the proximal colon in order to allow for dilation and placement of the anvil. A 31 EEA sizer was easily placed within the colon and then the 31-mm anvil was then placed into the opening and then the 3-0 Monocryl suture was secured around it. Once this was done, the colon was placed back into the abdominal cavity. The site where the wound protector was placed was closed off in order to allow for insufflation to be attained again and then the 31 EEA circular stapler was placed through the rectum and with the anvil and the EEA anastomosis was made. There appeared to be no tension at all on the anastomosis and the donuts were intact. An air leak test was performed under water after insufflating air into the rectal vault. There did appear to be some bubbles after the air leak test was performed. Therefore, inspection of the anastomosis showed that there was a very small, approximately 3 mm defect at the right lateral aspect of the anastomosis. This was oversewn using 2 interrupted full-thickness bites of 3-0 silk suture and this was also then imbricated using an U-stitch. An air leak test was again performed after this repair and was negative. A sigmoidoscopy was done to inspect the anastomosis and perform an additional air leak test and again there were no bubbles noted with the leak test. Therefore, attention was turned towards irrigating at the pelvis and suctioning out excess fluid from the right upper quadrant. Once this was done, a #10 ENMANUEL drain was placed into the pelvis, coming out from the left lower quadrant port site and it was secured to the abdominal wall using a Prolene suture. After this was done, all the trocars were removed under direct visualization and desufflation was obtained. The periumbilical site where the wound protector had been placed was closed using running #1 PDS suture. The skin at this site was closed with niles and all the other 5mm port sites were closed using interrupted 4-0 Monocryl sutures. The fascia of the 12-mm port site was closed using an 0 Vicryl suture. At the end of the case, all counts were correct. I was present during the entirety of the case and the patient was extubated and taken to the PACU in a stable condition. [id number]/[facility] #: [id number] SURYA
[2019-02-01] MEDS: D5W 1/2 NS 1000 ML BAG* 1,000 ML IV SCH (09:15)
[2019-02-01] MEDS: Ketorolac INJ* 30 MG/ML 1 ML VIAL IV PRN ×2 (09:56→17:14)
[2019-02-01] MEDS: NS 0.9% 1000 ML** 1,000 ML IV SCH (13:28)
--- NOTE | 2019-02-01 14:06 | PN ---
Progress Note - Progress Note Date of Service: 02/01/19 Note: Surgery Progress Note S: Patient complains of abdominal pain with movement. Otherwise feeling well. No nausea, no emesis, no flatus. O: Vital Signs: Temp Pulse Resp BP Pulse Ox 98.2 F 69 16 85/47 96 02/01/19 07:20 02/01/19 07:20 02/01/19 08:00 02/01/19 07:20 02/01/19 07:55 Laboratory Last Values WBC 7.4 10^3/ul (3.5-10.8) 02/01/19 05:39 RBC 3.95 10^6/ul (4.00-5.40) L 02/01/19 05:39 Hgb 12.1 g/dl (14.0-18.0) L 02/01/19 05:39 Hct 35 % (42-52) L 02/01/19 05:39 MCV 88 fL (80-94) 02/01/19 05:39 MCH 31 pg (27-31) 02/01/19 05:39 MCHC 35 g/dl (31-36) 02/01/19 05:39 RDW 14 % (10.5-15) 02/01/19 05:39 Plt Count 180 10^3/ul (150-450) 02/01/19 05:39 MPV 9.2 fL (7.4-10.4) 02/01/19 05:39 Neut % (Auto) 66.1 % 02/01/19 05:39 Lymph % (Auto) 19.8 % 02/01/19 05:39 [place] % (Auto) 14.0 % 02/01/19 05:39 Eos % (Auto) 0 % 02/01/19 05:39 Baso % (Auto) 0.1 % 02/01/19 05:39 Absolute Neuts (auto) 4.9 10^3/ul (1.5-7.7) 02/01/19 05:39 Absolute Lymphs (auto) 1.5 10^3/ul (1.0-4.8) 02/01/19 05:39 Absolute Monos (auto) 1.0 10^3/ul (0-0.8) H 02/01/19 05:39 Absolute Eos (auto) 0 10^3/ul (0-0.6) 02/01/19 05:39 Absolute Basos (auto) 0 10^3/ul (0-0.2) 02/01/19 05:39 Absolute Nucleated RBC 0 10^3/ul 02/01/19 05:39 Nucleated RBC % 0 02/01/19 05:39 Sodium 137 mmol/L (135-145) 02/01/19 05:39 Potassium 4.0 mmol/L (3.5-5.0) 02/01/19 05:39 Chloride 105 mmol/L (101-111) 02/01/19 05:39 Carbon Dioxide 27 mmol/L (22-32) 02/01/19 05:39 Anion Gap 5 mmol/L (2-11) 02/01/19 05:39 BUN 10 mg/dL (6-24) 02/01/19 05:39 Creatinine 0.88 mg/dL (0.67-1.17) 02/01/19 05:39 Est GFR ( Amer) 112.3 (>60) 02/01/19 05:39 Est GFR (Non-Af Amer) 92.8 (>60) 02/01/19 05:39 BUN/Creatinine Ratio 11.4 (8-20) 02/01/19 05:39 Glucose 170 mg/dL (70-100) H 02/01/19 05:39 POC Glucose (mg/dL) 205 mg/dL (70-100) H 01/31/19 20:48 Calcium 7.8 mg/dL (8.6-10.3) L 02/01/19 05:39 Blood Type A Positive 01/30/19 11:40 Antibody Screen Negative 01/30/19 11:40 Intake & Output 01/31/19 02/01/19 02/01/19 21:59 06:59 14:59 Intake Total Output Total 310 Balance -310 Intake: IV Fluids LR IVPB ABX - ZOSYN Oral Output: ENMANUEL #1 60 Pepper 250 Other: # Bowel Movements Estimated Blood Loss Comment Abd: soft, NTND, incisions clean with dressing in place, drain with S/S fluid Abx: zosyn PPx: HSQ Pain: dilaudid SHOP HAND and toradol PRN A/P: 48 M POD 1 from laparoscopic sigmoidectomy. - Continue pepper catheter and antibiotics for small bladder injury intraop. Will continue pepper for 7 days - Clear liquid diet - OOB and ambulate - Adjusted SHOP HAND to increase lock out dose - Appreciate hospitalist consult. I changed D5NS to NS @50cc/hr given patient' s elevated finger sticks. Will defer to hospitalists regarding insulin coverage as needed - Continue IS - Continue zosyn - Patient blood pressure normal to low, will continue to hold anti-HTN meds
--- NOTE | 2019-02-01 15:54 | PN ---
Subjective Date of Service: 02/01/19 Interval History: c/o abd pain , tolerable with current pain medications, denies chest pain or shortness of breath. denies fever or chills. resting in bed Family History: Unchanged from Admission Social History: Unchanged from Admission Past Medical History: Unchanged from Admission Objective Active Medications: Heparin Sodium (Porcine) (Heparin Vial(*)) 5,000 units SUBCUT Q12HR [facility] Last Admin: 02/01/19 08:16 Dose: 5,000 units Hydromorphone HCl (Dilaudid Inj1s*) 0.5 mg IV SLOW PU Q1H PRN PRN Reason: PAIN-BREAKTHROUGH Lactated Ringer's (Lactated Ringers 1000 Ml Bag*) 1,000 mls @ 75 mls/hr IV PER RATE [facility] Last Admin: 01/30/19 20:24 Dose: 75 mls/hr Hydromorphone HCl (Dilaudid Piping Supervisor*) 20 mg in 20 mls @ 0 mls/hr SOCK DRIER .change Q24H [facility]; Protocol Piperacillin Sod/Tazobactam (Sod 3.375 gm/ Sodium Chloride) 100 mls @ 25 mls/ hr IVPB Q8H [facility] Last Admin: 02/01/19 14:15 Dose: 25 mls/hr Sodium Chloride (Ns 0.9% 1000 Ml) 1,000 mls @ 50 mls/hr IV .PER RATE [facility] Ketorolac Tromethamine (Toradol Inj*) 15 mg IV Q6H PRN PRN Reason: PAIN Stop: 02/02/19 16:34 Last Admin: 02/01/19 09:56 Dose: 15 mg Naloxone HCl (Narcan*) 0.08 mg IV PUSH Q2M PRN PRN Reason: RR<8, PT UNRESPONSIVE Ondansetron HCl (Zofran Inj*) 4 mg IV Q4H PRN PRN Reason: NAUSEA/VOMITING Pharmacy Consult (Zosyn Per Pharmacy*) 1 note FOLLOW UP .ZOSYN PER PHARMACY [facility] Pharmacy Profile Note (Scopolamine Patch Remove*) 1 note PATCH OFF Q72H ONE Stop: 02/03/19 07:59 Vital Signs - 8 hr 02/01/19 02/01/19 02/01/19 07:55 08:00 10:00 Temperature Pulse Rate Respiratory 16 16 18 Rate Blood Pressure (mmHg) O2 Sat by Pulse 96 98 Oximetry 02/01/19 02/01/19 02/01/19 11:20 12:00 14:00 Temperature 98.8 F Pulse Rate 65 Respiratory 16 16 18 Rate Blood Pressure 94/47 (mmHg) O2 Sat by Pulse 100 99 99 Oximetry Oxygen Devices in Use Now: Nasal Cannula Appearance: appears comfortable , alert and oriented x 3 , Eyes: No Scleral Icterus Ears/Nose/Mouth/Throat: Clear Oropharnyx, Mucous Membranes Moist Neck: NL Appearance and Movements; NL JVP, Trachea Midline Respiratory: Symmetrical Chest Expansion and Respiratory Effort, Clear to Auscultation Cardiovascular: NL Sounds; No Murmurs; No JVD, No Edema Abdominal: - - tenderness noted , BS active x 4 , soft Extremities: No Edema, No Clubbing, Cyanosis Skin: No Rash or Ulcers Neurological: Alert and Oriented x 3 Nutrition: Taking PO's Result Diagrams: 02/01/19 05:39 02/01/19 05:39 Assess/Plan/Problems-Billing Assessment: Mr. Wynne is a 48 y.omale with hx of type 2 DM resolved with weight loss but is maintained on metformin ,HLD who presented for elective colectomy for diverticulitis. - Patient Problems (1) Status post colectomy Current Visit: Yes Status: Acute Code(s): Z90.49 - ACQUIRED ABSENCE OF OTHER SPECIFIED PARTS OF DIGESTIVE TRACT SNOMED Code(s): 442676670 Comment: - management per surgery - dvt prop per surgery (2) Diabetes Current Visit: Yes Status: Acute Code(s): E11.9 - TYPE 2 DIABETES MELLITUS WITHOUT COMPLICATIONS SNOMED Code(s): 08061422 Comment: fingersticks blood sugar elevated today IVF changed from D5ns to NS - will continue to monitor (3) HLD (hyperlipidemia) Current Visit: Yes Status: Acute Code(s): E78.5 - HYPERLIPIDEMIA, UNSPECIFIED SNOMED Code(s): 07541990 Comment: will resume lipitor when able (4) DVT prophylaxis Current Visit: Yes Status: Acute Code(s): GLT9046 - SNOMED Code(s): 712676205 Comment: Heparin SubQ (5) Full code status Current Visit: Yes Status: Acute Code(s): Z78.9 - OTHER SPECIFIED HEALTH STATUS SNOMED Code(s): 366669647 Status and Disposition: per surgery
[2019-02-02] MEDS: ZOSYN 3.375 GM Q8H per EXTENDED INFUSION IVPB SCH ×6 (06:09→21:45)
[2019-02-02 06:20] LABS: ABS Basophils 0 10^3/ul (0-0.2); ABS Eosinophils 0 10^3/ul (0-0.6); ABS Lymphocytes 2.2 10^3/ul (1.0-4.8); ABS Monocytes 0.6 10^3/ul (0-0.8); ABS Neutrophils 3.5 10^3/ul (1.5-7.7); ABS Nucleated RBC 0 10^3/ul; Eosinophil % 0.7 %; Hematocrit 31 % (42-52); Hemoglobin 10.5 g/dl (14.0-18.0); Lymphocyte % 34.2 %; Mean Corpuscular HGB Conc 34 g/dl (31-36); Mean Corpuscular Hemoglobin 30 pg (27-31); Mean Corpuscular Volume 90 fL (80-94); Mean Platelet Volume 9.4 fL (7.4-10.4); Nucleated Red Blood Cells % 0.1; Platelet Count 143 10^3/ul (150-450); Red Blood Count 3.49 10^6/ul (4.00-5.40); Red Cell Distribution Width 14 % (10.5-15); White Blood Count 6.4 10^3/ul (3.5-10.8)
[2019-02-02 06:34] LABS: BUN/Creatinine Ratio 11.8 (8-20); Calcium 7.9 mg/dL (8.6-10.3); EGFR African American 116.9 (>60); EGFR Non-African American 96.6 (>60); Potassium 3.7 mmol/L (3.5-5.0)
[2019-02-02] MEDS: Ketorolac INJ* 30 MG/ML 1 ML VIAL IV PRN (07:51)
[2019-02-02] MEDS: Heparin VIAL(*) 5000 UNITS/ML VIAL (FIVE THOUSAND) SUBCUT SCH (07:51)
--- NOTE | 2019-02-02 09:45 | PN ---
Progress Note - Progress Note Date of Service: 02/02/19 Note: Surgery Progress Note S: Patient had BM with blood clot yesterday evening, per the nurse. He had another 2 overnight and 1 this morning that were smaller volume. Per nurse this morning the output appeared like dark melena. He denies dizziness or weakness. His pain is decreasing and he ambulated yesterday around the unit. No flatus. He is tolerating CLD with no emesis or nausea. O: Vital Signs: Temp Pulse Resp BP Pulse Ox 98.8 F 69 16 106/56 100 02/02/19 07:36 02/02/19 07:36 02/02/19 07:36 02/02/19 07:36 02/02/19 07:36 Laboratory Last Values WBC 6.4 10^3/ul (3.5-10.8) 02/02/19 05:26 RBC 3.49 10^6/ul (4.00-5.40) L 02/02/19 05:26 Hgb 10.5 g/dl (14.0-18.0) L 02/02/19 05:26 Hct 31 % (42-52) L 02/02/19 05:26 MCV 90 fL (80-94) 02/02/19 05:26 MCH 30 pg (27-31) 02/02/19 05:26 MCHC 34 g/dl (31-36) 02/02/19 05:26 RDW 14 % (10.5-15) 02/02/19 05:26 Plt Count 143 10^3/ul (150-450) L 02/02/19 05:26 MPV 9.4 fL (7.4-10.4) 02/02/19 05:26 Neut % (Auto) 55.3 % 02/02/19 05:26 Lymph % (Auto) 34.2 % 02/02/19 05:26 [place] % (Auto) 9.5 % 02/02/19 05:26 Eos % (Auto) 0.7 % 02/02/19 05:26 Baso % (Auto) 0.3 % 02/02/19 05:26 Absolute Neuts (auto) 3.5 10^3/ul (1.5-7.7) 02/02/19 05:26 Absolute Lymphs (auto) 2.2 10^3/ul (1.0-4.8) 02/02/19 05:26 Absolute Monos (auto) 0.6 10^3/ul (0-0.8) 02/02/19 05:26 Absolute Eos (auto) 0 10^3/ul (0-0.6) 02/02/19 05:26 Absolute Basos (auto) 0 10^3/ul (0-0.2) 02/02/19 05:26 Absolute Nucleated RBC 0 10^3/ul 02/02/19 05:26 Nucleated RBC % 0.1 02/02/19 05:26 Sodium 141 mmol/L (135-145) 02/02/19 05:26 Potassium 3.7 mmol/L (3.5-5.0) 02/02/19 05:26 Chloride 107 mmol/L (101-111) 02/02/19 05:26 Carbon Dioxide 30 mmol/L (22-32) 02/02/19 05:26 Anion Gap 4 mmol/L (2-11) 02/02/19 05:26 BUN 10 mg/dL (6-24) 02/02/19 05:26 Creatinine 0.85 mg/dL (0.67-1.17) 02/02/19 05:26 Est GFR ( Amer) 116.9 (>60) 02/02/19 05:26 Est GFR (Non-Af Amer) 96.6 (>60) 02/02/19 05:26 BUN/Creatinine Ratio 11.8 (8-20) 02/02/19 05:26 Glucose 88 mg/dL (70-100) 02/02/19 05:26 POC Glucose (mg/dL) 107 mg/dL (70-100) H 02/02/19 04:52 Calcium 7.9 mg/dL (8.6-10.3) L 02/02/19 05:26 Blood Type A Positive 01/30/19 11:40 Antibody Screen Negative 01/30/19 11:40 Intake & Output 02/01/19 02/02/19 02/02/19 22:59 06:59 14:59 Intake Total 2268 360 Output Total 670 580 Balance 1598 -220 Intake: IVPB 1868 ABX - ZOSYN 235 LR 1633 Oral 400 360 Output: ENMANUEL #1 20 30 Pepper 650 550 Other: # Bowel Movements 0 Physical exam: abdomen soft, mildly distended, tender appropriately around incisions, c/d/i. ENMANUEL with serosanguinous fluid, pepper with normal appearing urin Abx: zosyn PPX: HSQ A/P: 48 M POD 2 from laparoscopic sigmoidectomy. - I explained to patient that some old blood clot from the anastomosis is expected. Will watch carefully for evidence of active GIB, such as bright red blood, symptoms reflecting anemia (dizziness, shortness of breath) - Will recheck a PM CBC - Hold toradol and HSQ until ensuring Hct is stable - Continue ambulating - Continue CLD - Continue MURAL PAINTER for pain control - Pepper catheter x 7 days and Zosyn s/p bladder repair
[2019-02-02] MEDS: NS 0.9% 1000 ML** 1,000 ML IV SCH (10:09)
[2019-02-02 12:57] LABS: ABS Basophils 0.1 10^3/ul (0-0.2); ABS Eosinophils 0 10^3/ul (0-0.6); ABS Lymphocytes 2.2 10^3/ul (1.0-4.8); ABS Monocytes 0.7 10^3/ul (0-0.8); ABS Neutrophils 4.1 10^3/ul (1.5-7.7); ABS Nucleated RBC 0 10^3/ul; Eosinophil % 0.7 %; Hematocrit 32 % (42-52); Hemoglobin 10.7 g/dl (14.0-18.0); Lymphocyte % 31.7 %; Mean Corpuscular HGB Conc 33 g/dl (31-36); Mean Corpuscular Hemoglobin 30 pg (27-31); Mean Corpuscular Volume 89 fL (80-94); Mean Platelet Volume 8.5 fL (7.4-10.4); Nucleated Red Blood Cells % 0; Platelet Count 154 10^3/ul (150-450); Red Cell Distribution Width 14 % (10.5-15); White Blood Count 7.1 10^3/ul (3.5-10.8)
--- NOTE | 2019-02-02 17:03 | PN ---
Subjective Date of Service: 02/02/19 Interval History: Pt states that he is having pain in lower abdominal region and up to umbilicus that he rates aout 6-7/10. He states that he has about 2 bloody BM every day. He is tolerating clear liquid diet without any difficulty and denies nausea, vomiting. He has ambulated 2x today and plans to walk once more. Pt states that he does not have hypertension. He states that his Dr has put him on Lisinopril prophylactically for kidney protection. Family History: Unchanged from Admission Social History: Unchanged from Admission Past Medical History: Unchanged from Admission Objective Active Medications: Hydromorphone HCl (Dilaudid Inj1s*) 0.5 mg IV SLOW PU Q1H PRN Lactated Ringer's (Lactated Ringers 1000 Ml Bag*) 1,000 mls @ 75 mls/hr IV PER RATE [facility] Hydromorphone HCl (Dilaudid Numerical Analysis Group Manager*) 20 mg in 20 mls @ 0 mls/hr [employer] HE[employer] NAVIGATOR .change Q24H [facility]; Protocol Piperacillin Sod/Tazobactam (Sod 3.375 gm/ Sodium Chloride) 100 mls @ 25 mls/ hr IVPB Q8H [facility] Sodium Chloride (Ns 0.9% 1000 Ml) 1,000 mls @ 50 mls/hr IV .PER RATE [facility] Naloxone HCl (Narcan*) 0.08 mg IV PUSH Q2M PRN Ondansetron HCl (Zofran Inj*) 4 mg IV Q4H PRN Pharmacy Consult (Zosyn Per Pharmacy*) 1 note FOLLOW UP .ZOSYN PER PHARMACY [facility] Pharmacy Profile Note (Scopolamine Patch Remove*) 1 note PATCH OFF Q72H [facility] Vital Signs: Temp Pulse Resp BP Pulse Ox 99.0 F 82 18 115/66 97 02/02/19 15:22 02/02/19 15:22 02/02/19 16:00 02/02/19 15:22 02/02/19 16:00 Oxygen Devices in Use Now: Nasal Cannula Appearance: Pt is sitting up in bed. He appears slightly uncomfortable, but is cooperative and appropriate. He is in no acute distress. Eyes: No Scleral Icterus, PERRLA Ears/Nose/Mouth/Throat: NL Teeth, Lips, Gums, Clear Oropharnyx, Mucous Membranes Moist Neck: NL Appearance and Movements; NL JVP, Trachea Midline Respiratory: Symmetrical Chest Expansion and Respiratory Effort, Clear to Auscultation Cardiovascular: NL Sounds; No Murmurs; No JVD, RRR, No Edema Abdominal: - - Bowel sounds in all quadrants. Umbilical incision without drainage, erythema; lateral incisions with CDI dressing. No aparent distention. ENMANUEL tube in place with small amount of serosang discharge in bulb. Lymphatic: No Cervical Adenopathy Extremities: No Edema, No Clubbing, Cyanosis Neurological: Alert and Oriented x 3 Result Diagrams: 02/02/19 12:46 02/02/19 05:26 Assess/Plan/Problems-Billing Assessment: Mr. Wynne is a 48 y.omale with hx of type 2 DM resolved with weight loss but is maintained on metformin ,HLD who presented for elective colectomy for diverticulitis. - Patient Problems (1) Status post colectomy Comment: -Management per surgery -DVT ppx per surgery (2) Diabetes Comment: -BS 90-121 in last 24h; pt on CL diet currently -Continue to monitor BS and need for insulin -Resume Lisinopril when diet advanced (3) HLD (hyperlipidemia) Comment: -Will resume lipitor when advanced from CL diet (4) DVT prophylaxis Comment: -Per surgery: TEDs (5) Full code status Status and Disposition: Inpatient. Discharge per surgery.
[2019-02-03] MEDS: NS 0.9% 1000 ML** 1,000 ML IV SCH (05:59)
[2019-02-03] MEDS: ZOSYN 3.375 GM Q8H per EXTENDED INFUSION IVPB SCH ×6 (06:14→22:18)
[2019-02-03 07:53] LABS: ABS Basophils 0.1 10^3/ul (0-0.2); ABS Eosinophils 0.2 10^3/ul (0-0.6); ABS Lymphocytes 2.6 10^3/ul (1.0-4.8); ABS Neutrophils 5.6 10^3/ul (1.5-7.7); ABS Nucleated RBC 0 10^3/ul; Eosinophil % 1.9 %; Hematocrit 35 % (42-52); Hemoglobin 11.8 g/dl (14.0-18.0); Lymphocyte % 27.8 %; Mean Corpuscular HGB Conc 34 g/dl (31-36); Mean Corpuscular Hemoglobin 31 pg (27-31); Mean Corpuscular Volume 90 fL (80-94); Mean Platelet Volume 8.8 fL (7.4-10.4); Nucleated Red Blood Cells % 0.1; Platelet Count 172 10^3/ul (150-450); Red Blood Count 3.86 10^6/ul (4.00-5.40); Red Cell Distribution Width 14 % (10.5-15); White Blood Count 9.4 10^3/ul (3.5-10.8)
[2019-02-03] MEDS ORDERED: Scopolamine PATCH Remove* 1 NOTE MISC PATCH OFF ONE (07:58)
[2019-02-03 08:09] LABS: BUN/Creatinine Ratio 10.6 (8-20); Calcium 8.6 mg/dL (8.6-10.3); EGFR African American 116.9 (>60); EGFR Non-African American 96.6 (>60); Potassium 3.4 mmol/L (3.5-5.0)
[2019-02-03] MEDS: KCL 20 MEQ/100 ML IVPREMIX* 20 MEQ/100 ML BAG IV SCH ×3 (10:20→21:35)
--- NOTE | 2019-02-03 16:57 | PN ---
Progress Note - Progress Note Date of Service: 02/03/19 Note: Surgery Progress Note S: Patient was seen earlier in day approximately 8am. He reported doing well, still feeling somewhat anxious but not tired. He doesn't have much of an appetite. No nausea or emesis. Tolerating CLD without difficulty. Ambulating. Pain is improving. Had about 200cc dark melena this AM. Vitals remain stable, Hct 35 this morning. O: Vital Signs: Temp Pulse Resp BP Pulse Ox 99.1 F 74 16 106/68 98 02/03/19 11:25 02/03/19 11:25 02/03/19 12:00 02/03/19 11:25 02/03/19 12:00 Laboratory Last Values WBC 9.4 10^3/ul (3.5-10.8) 02/03/19 07:32 RBC 3.86 10^6/ul (4.00-5.40) L 02/03/19 07:32 Hgb 11.8 g/dl (14.0-18.0) L 02/03/19 07:32 Hct 35 % (42-52) L 02/03/19 07:32 MCV 90 fL (80-94) 02/03/19 07:32 MCH 31 pg (27-31) 02/03/19 07:32 MCHC 34 g/dl (31-36) 02/03/19 07:32 RDW 14 % (10.5-15) 02/03/19 07:32 Plt Count 172 10^3/ul (150-450) 02/03/19 07:32 MPV 8.8 fL (7.4-10.4) 02/03/19 07:32 Neut % (Auto) 59.3 % 02/03/19 07:32 Lymph % (Auto) 27.8 % 02/03/19 07:32 [place] % (Auto) 10.4 % 02/03/19 07:32 Eos % (Auto) 1.9 % 02/03/19 07:32 Baso % (Auto) 0.6 % 02/03/19 07:32 Absolute Neuts (auto) 5.6 10^3/ul (1.5-7.7) 02/03/19 07:32 Absolute Lymphs (auto) 2.6 10^3/ul (1.0-4.8) 02/03/19 07:32 Absolute Monos (auto) 1.0 10^3/ul (0-0.8) H 02/03/19 07:32 Absolute Eos (auto) 0.2 10^3/ul (0-0.6) 02/03/19 07:32 Absolute Basos (auto) 0.1 10^3/ul (0-0.2) 02/03/19 07:32 Absolute Nucleated RBC 0 10^3/ul 02/03/19 07:32 Nucleated RBC % 0.1 02/03/19 07:32 Sodium 139 mmol/L (135-145) 02/03/19 07:32 Potassium 3.4 mmol/L (3.5-5.0) L 02/03/19 07:32 Chloride 103 mmol/L (101-111) 02/03/19 07:32 Carbon Dioxide 27 mmol/L (22-32) 02/03/19 07:32 Anion Gap 9 mmol/L (2-11) 02/03/19 07:32 BUN 9 mg/dL (6-24) 02/03/19 07:32 Creatinine 0.85 mg/dL (0.67-1.17) 02/03/19 07:32 Est GFR ( Amer) 116.9 (>60) 02/03/19 07:32 Est GFR (Non-Af Amer) 96.6 (>60) 02/03/19 07:32 BUN/Creatinine Ratio 10.6 (8-20) 02/03/19 07:32 Glucose 93 mg/dL (70-100) 02/03/19 07:32 POC Glucose (mg/dL) 95 mg/dL (70-100) 02/03/19 06:26 Calcium 8.6 mg/dL (8.6-10.3) 02/03/19 07:32 Blood Type A Positive 01/30/19 11:40 Antibody Screen Negative 01/30/19 11:40 Intake & Output 02/03/19 02/03/19 02/03/19 06:59 14:59 22:59 Intake Total 2734 210 Output Total 825 1245 Balance 1909 -1035 Intake: IV Fluids 262 ABX - ZOSYN 262 IVPB 992 NS (0.9%) 992 Oral 1480 210 Output: ENMANUEL #1 25 45 Pepper 750 900 Liquid Stool 50 300 I/O: uop 3500cc Abx: zosyn ppx: holding HSQ for melena 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 - Continue to monitor melena, likely old blood from anastomosis. Patient Hct stable and vitals stable. - Continue Zosyn and pepper for small bladder injury - Continue CLD until flatus - Continue OOB - Will add protonix for ppx and will plan to restart HSQ tomorrow if melena improves
--- NOTE | 2019-02-03 18:47 | PN ---
Subjective Date of Service: 02/03/19 Interval History: Pt is doing well. He c/o abdominal bloating and bloody BMs. Pt states he had 1 large and 2 small bloody BM today. He is ambulating multiple times per day. He is tolerating PO intake well. He has no complaints at this time and denies CP, SOB, cough, fever, pain in calves. Family History: Unchanged from Admission Social History: Unchanged from Admission Past Medical History: Unchanged from Admission Objective Active Medications: Hydromorphone HCl (Dilaudid Inj1s*) 0.5 mg IV SLOW PU Q1H PRN Hydromorphone HCl (Dilaudid Library Customer Service Clerk*) 20 mg in 20 mls @ 0 mls/hr PARTNERSHIP MANAGER .change Q24H [facility]; Protocol Piperacillin Sod/Tazobactam (Sod 3.375 gm/ Sodium Chloride) 100 mls @ 25 mls/ hr IVPB Q8H [facility] Potassium Chloride/Sodium Chloride (Ns 0.9% W/ 20 Meq Kcl 1000 Ml*) 1,000 mls @ 50 mls/hr IV PER RATE [facility] Naloxone HCl (Narcan*) 0.08 mg IV PUSH Q2M PRN Ondansetron HCl (Zofran Inj*) 4 mg IV Q4H PRN Pantoprazole Sodium (Protonix Iv*) 40 mg IV DAILY [facility] Pharmacy Consult (Zosyn Per Pharmacy*) 1 note FOLLOW UP .ZOSYN PER PHARMACY [facility] Vital Signs: Temp Pulse Resp BP Pulse Ox 99.2 F 66 16 110/62 100 02/03/19 16:11 02/03/19 16:11 02/03/19 18:00 02/03/19 16:11 02/03/19 18:00 Oxygen Devices in Use Now: None Appearance: Pt is sitting up in bed. He appears well and in no acute distress. Eyes: No Scleral Icterus, PERRLA Ears/Nose/Mouth/Throat: NL Teeth, Lips, Gums, Clear Oropharnyx, Mucous Membranes Moist Neck: NL Appearance and Movements; NL JVP, Trachea Midline Respiratory: Symmetrical Chest Expansion and Respiratory Effort, Clear to Auscultation Cardiovascular: NL Sounds; No Murmurs; No JVD, RRR, No Edema Abdominal: - - Abdomen with ENMANUEL in place with serosang fluid in bulb; dressing CDI. BS in all quadrants. Extremities: No Edema, No Clubbing, Cyanosis Neurological: Alert and Oriented x 3 Result Diagrams: 02/03/19 07:32 02/03/19 07:32 Assess/Plan/Problems-Billing Assessment: Mr. Wynne is a 48 y.omale with hx of type 2 DM resolved with weight loss but is maintained on metformin ,HLD who presented for elective colectomy for diverticulitis. - Patient Problems (1) Status post colectomy Comment: -Management per surgery -DVT ppx per surgery (2) Diabetes Comment: -BS 87-105 in last 24h; pt on CL diet currently -Continue to monitor BS and need for insulin -Resume Lisinopril when diet advanced (3) HLD (hyperlipidemia) Comment: -Will resume lipitor when advanced from CL diet (4) DVT prophylaxis Comment: -Per surgery: TEDs (5) Full code status Status and Disposition: Inpatient. Discharge per surgery.
[2019-02-03] MEDS: NS 0.9% w/ 20 Meq KCL 1000 ML* 1,000 ML IV SCH (19:19)
[2019-02-04] MEDS: ZOSYN 3.375 GM Q8H per EXTENDED INFUSION IVPB SCH ×6 (05:47→21:32)
[2019-02-04 06:07] LABS: ABS Basophils 0 10^3/ul (0-0.2); ABS Eosinophils 0.3 10^3/ul (0-0.6); ABS Lymphocytes 1.4 10^3/ul (1.0-4.8); ABS Monocytes 0.6 10^3/ul (0-0.8); ABS Neutrophils 3.4 10^3/ul (1.5-7.7); ABS Nucleated RBC 0 10^3/ul; Eosinophil % 4.9 %; Hematocrit 32 % (42-52); Hemoglobin 11.1 g/dl (14.0-18.0); Lymphocyte % 24.4 %; Mean Corpuscular HGB Conc 34 g/dl (31-36); Mean Corpuscular Hemoglobin 31 pg (27-31); Mean Corpuscular Volume 90 fL (80-94); Mean Platelet Volume 8.5 fL (7.4-10.4); Nucleated Red Blood Cells % 0; Platelet Count 163 10^3/ul (150-450); Red Blood Count 3.61 10^6/ul (4.00-5.40); Red Cell Distribution Width 14 % (10.5-15); White Blood Count 5.7 10^3/ul (3.5-10.8)
[2019-02-04 06:22] LABS: BUN/Creatinine Ratio 8.6 (8-20); Calcium 8.4 mg/dL (8.6-10.3); EGFR African American 123.6 (>60); EGFR Non-African American 102.1 (>60); Potassium 3.9 mmol/L (3.5-5.0)
[2019-02-04] MEDS ORDERED: Pantoprazole IV* 40 MG IV SCH (09:00)
--- NOTE | 2019-02-04 10:47 | PN ---
Progress Note - Progress Note Date of Service: 02/04/19 Note: Surgery Progress Note S: Patient is doing well. Has flatus and more greenish-brown BM today. Afebrile, ambulating and pain is minimal. No nausea or emesis. O: Vital Signs: Temp Pulse Resp BP Pulse Ox 98.5 F 71 18 115/69 99 02/04/19 07:51 02/04/19 07:51 02/04/19 08:00 02/04/19 07:51 02/04/19 08:00 Laboratory Results - last 24 hr 02/03/19 02/03/19 02/04/19 12:57 18:21 00:19 WBC RBC Hgb Hct MCV MCH MCHC RDW Plt Count MPV Neut % (Auto) Lymph % (Auto) [place] % (Auto) Eos % (Auto) Baso % (Auto) Absolute Neuts (auto) Absolute Lymphs (auto) Absolute Monos (auto) Absolute Eos (auto) Absolute Basos (auto) Absolute Nucleated RBC Nucleated RBC % Sodium Potassium Chloride Carbon Dioxide Anion Gap BUN Creatinine Est GFR ( Amer) Est GFR (Non-Af Amer) BUN/Creatinine Ratio Glucose POC Glucose (mg/dL) 87 90 121 H Calcium 02/04/19 02/04/19 02/04/19 05:39 05:39 05:47 WBC 5.7 RBC 3.61 L Hgb 11.1 L Hct 32 L MCV 90 MCH 31 MCHC 34 RDW 14 Plt Count 163 MPV 8.5 Neut % (Auto) 59.1 Lymph % (Auto) 24.4 [place] % (Auto) 11.2 Eos % (Auto) 4.9 Baso % (Auto) 0.4 Absolute Neuts (auto) 3.4 Absolute Lymphs (auto) 1.4 Absolute Monos (auto) 0.6 Absolute Eos (auto) 0.3 Absolute Basos (auto) 0 Absolute Nucleated RBC 0 Nucleated RBC % 0 Sodium 143 Potassium 3.9 Chloride 106 Carbon Dioxide 30 Anion Gap 7 BUN 7 Creatinine 0.81 Est GFR ( Amer) 123.6 Est GFR (Non-Af Amer) 102.1 BUN/Creatinine Ratio 8.6 Glucose 96 POC Glucose (mg/dL) 99 Calcium 8.4 L Intake & Output 02/03/19 02/04/19 02/04/19 22:59 06:59 14:59 Intake Total 690 1000 Output Total 470 985 135 Balance 220 15 -135 Intake: IV Fluids 210 415 ABX - ZOSYN 105 105 NS (0.9%) 205 Potassium 105 105 IVPB 105 NS (0.9%) 105 Oral 480 480 Output: ENMANUEL #1 20 60 60 Pepper 400 850 Liquid Stool 50 75 75 Other: Date of Last Bowel 02/04/19 Movement # Bowel Movements 1 1 Estimated Stool Amount Medium Small Abd: soft, minimally tender, incisions c/d/i, ENMANUEL with serous fluid Abx: zosyn Ppx: protonix 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 - Continue pepper catheter for 7 days for bladder injury - Will restart HSQ today, patient having almost no melena and Hct stable, vitals stable - Patient having bowel function, will start soft diet - Continue zosyn - Will plan to switch to PO pain meds tomorrow
[2019-02-04] MEDS: NS 0.9% w/ 20 Meq KCL 1000 ML* 1,000 ML IV SCH (10:48)
--- NOTE | 2019-02-04 14:09 | PN ---
Subjective Date of Service: 02/04/19 Interval History: Pt is doing well. Tolerating soft diet. States he has had 2 BM that were brown with a very small amount of blood. Pt has been ambulating. Pt denies CP , SOB, fever, cough, n/v. Family History: Unchanged from Admission Social History: Unchanged from Admission Past Medical History: Unchanged from Admission Objective Active Medications: Heparin Sodium (Porcine) (Heparin Vial(*)) 5,000 units SUBCUT Q12HR [facility] Hydromorphone HCl (Dilaudid Inj1s*) 0.5 mg IV SLOW PU Q1H PRN Hydromorphone HCl (Dilaudid Preschool Disability Teacher*) 20 mg in 20 mls @ 0 mls/hr MASS COMMUNICATIONS INSTRUCTOR .change Q24H [facility]; Protocol Piperacillin Sod/Tazobactam (Sod 3.375 gm/ Sodium Chloride) 100 mls @ 25 mls/ hr IVPB Q8H [facility] Potassium Chloride/Sodium Chloride (Ns 0.9% W/ 20 Meq Kcl 1000 Ml*) 1,000 mls @ 50 mls/hr IV PER RATE [facility] Naloxone HCl (Narcan*) 0.08 mg IV PUSH Q2M PRN Ondansetron HCl (Zofran Inj*) 4 mg IV Q4H PRN Pantoprazole Sodium (Protonix Iv*) 40 mg IV DAILY [facility] Pharmacy Consult (Zosyn Per Pharmacy*) 1 note FOLLOW UP .ZOSYN PER PHARMACY [facility] Vital Signs: Temp Pulse Resp BP Pulse Ox 99.5 F 70 16 116/68 98 02/04/19 11:34 02/04/19 11:34 02/04/19 13:46 02/04/19 11:34 02/04/19 13:46 Oxygen Devices in Use Now: None Appearance: Pt is sitting up in bed. He appears comfortable and is in no acute distress. Ears/Nose/Mouth/Throat: NL Teeth, Lips, Gums, Clear Oropharnyx, Mucous Membranes Moist Neck: NL Appearance and Movements; NL JVP, Trachea Midline Respiratory: Symmetrical Chest Expansion and Respiratory Effort, Clear to Auscultation Cardiovascular: NL Sounds; No Murmurs; No JVD, RRR, No Edema Abdominal: - - BS in all quadrants; nondistended. Dressings CDI with ENMANUEL in place and serosang fluid in bulb Extremities: No Edema, No Clubbing, Cyanosis Neurological: Alert and Oriented x 3 Result Diagrams: 02/04/19 05:39 02/04/19 05:39 Assess/Plan/Problems-Billing Assessment: Mr. Wynne is a 48 y.omale with hx of type 2 DM resolved with weight loss but is maintained on metformin ,HLD who presented for elective colectomy for diverticulitis. - Patient Problems (1) Status post colectomy Comment: -Management per surgery -DVT ppx per surgery (2) Diabetes Comment: -BS 87-174 in last 24h; pt advanced to soft diet -Will add SS insulin AC -Resume lisinopril if pt tolerates soft diet (3) HLD (hyperlipidemia) Comment: -Will resume lipitor if tolerates soft diet (4) DVT prophylaxis Comment: -Per surgery: TEDs -Start Heparin today (5) Full code status Status and Disposition: Inpatient. Discharge per surgery.
[2019-02-04] MEDS ORDERED: Dextrose 50% Syringe 50 ML* 25 GM/50 ML SYRINGE IV PUSH PRN (14:10)
[2019-02-04] MEDS: Insulin LISPRO* 1 UNITS UNIT SUBCUT SCH (17:55)
[2019-02-04] MEDS ORDERED: HYDROcodone/ACETAMIN 5-325 MG* 1 TAB PO PRN (20:22)
[2019-02-04] MEDS: Heparin VIAL(*) 5000 UNITS/ML VIAL (FIVE THOUSAND) SUBCUT SCH (20:25)
[2019-02-05] MEDS: ZOSYN 3.375 GM Q8H per EXTENDED INFUSION IVPB SCH ×2 (05:54)
[2019-02-05] MEDS: HYDROcodone/ACETAMIN 5-325 MG* 1 TAB PO PRN ×3 (05:56→17:04)
[2019-02-05 07:30] LABS: ABS Basophils 0 10^3/ul (0-0.2); ABS Eosinophils 0.3 10^3/ul (0-0.6); ABS Lymphocytes 1.4 10^3/ul (1.0-4.8); ABS Monocytes 0.4 10^3/ul (0-0.8); ABS Neutrophils 3.1 10^3/ul (1.5-7.7); ABS Nucleated RBC 0 10^3/ul; Eosinophil % 6.4 %; Hematocrit 31 % (42-52); Hemoglobin 10.8 g/dl (14.0-18.0); Lymphocyte % 26.9 %; Mean Corpuscular HGB Conc 35 g/dl (31-36); Mean Corpuscular Hemoglobin 31 pg (27-31); Mean Corpuscular Volume 88 fL (80-94); Mean Platelet Volume 8.2 fL (7.4-10.4); Nucleated Red Blood Cells % 0; Platelet Count 187 10^3/ul (150-450); Red Blood Count 3.54 10^6/ul (4.00-5.40); Red Cell Distribution Width 14 % (10.5-15); White Blood Count 5.3 10^3/ul (3.5-10.8)
[2019-02-05 07:45] LABS: BUN/Creatinine Ratio 8.9 (8-20); Calcium 8.5 mg/dL (8.6-10.3); EGFR African American 127.2 (>60); EGFR Non-African American 105.1 (>60); Potassium 3.7 mmol/L (3.5-5.0)
[2019-02-05] MEDS: Insulin LISPRO* 1 UNITS UNIT SUBCUT SCH ×3 (08:01→17:08)
[2019-02-05] MEDS: Heparin VIAL(*) 5000 UNITS/ML VIAL (FIVE THOUSAND) SUBCUT SCH ×2 (08:43→21:58)
--- NOTE | 2019-02-05 09:14 | PN ---
Progress Note - Progress Note Date of Service: 02/05/19 Note: Surgery Progress Note S: Patient is doing well. Feels tired because he didn't get much sleep last night. Tolerating soft diet without difficulty. No nausea or emesis. Having BM that are green-brown. Has flatus with BM. No fevers, normal WBC. He ambulated yesterday many times. O: Vital Signs: Temp Pulse Resp BP Pulse Ox 98.7 F 58 18 98/64 96 02/05/19 07:31 02/05/19 07:31 02/05/19 09:04 02/05/19 07:31 02/05/19 09:04 Laboratory Last Values WBC 5.3 10^3/ul (3.5-10.8) 02/05/19 07:15 RBC 3.54 10^6/ul (4.00-5.40) L 02/05/19 07:15 Hgb 10.8 g/dl (14.0-18.0) L 02/05/19 07:15 Hct 31 % (42-52) L 02/05/19 07:15 MCV 88 fL (80-94) 02/05/19 07:15 MCH 31 pg (27-31) 02/05/19 07:15 MCHC 35 g/dl (31-36) 02/05/19 07:15 RDW 14 % (10.5-15) 02/05/19 07:15 Plt Count 187 10^3/ul (150-450) 02/05/19 07:15 MPV 8.2 fL (7.4-10.4) 02/05/19 07:15 Neut % (Auto) 58.3 % 02/05/19 07:15 Lymph % (Auto) 26.9 % 02/05/19 07:15 [place] % (Auto) 7.6 % 02/05/19 07:15 Eos % (Auto) 6.4 % 02/05/19 07:15 Baso % (Auto) 0.8 % 02/05/19 07:15 Absolute Neuts (auto) 3.1 10^3/ul (1.5-7.7) 02/05/19 07:15 Absolute Lymphs (auto) 1.4 10^3/ul (1.0-4.8) 02/05/19 07:15 Absolute Monos (auto) 0.4 10^3/ul (0-0.8) 02/05/19 07:15 Absolute Eos (auto) 0.3 10^3/ul (0-0.6) 02/05/19 07:15 Absolute Basos (auto) 0 10^3/ul (0-0.2) 02/05/19 07:15 Absolute Nucleated RBC 0 10^3/ul 02/05/19 07:15 Nucleated RBC % 0 02/05/19 07:15 Sodium 140 mmol/L (135-145) 02/05/19 07:15 Potassium 3.7 mmol/L (3.5-5.0) 02/05/19 07:15 Chloride 106 mmol/L (101-111) 02/05/19 07:15 Carbon Dioxide 27 mmol/L (22-32) 02/05/19 07:15 Anion Gap 7 mmol/L (2-11) 02/05/19 07:15 BUN 7 mg/dL (6-24) 02/05/19 07:15 Creatinine 0.79 mg/dL (0.67-1.17) 02/05/19 07:15 Est GFR ( Amer) 127.2 (>60) 02/05/19 07:15 Est GFR (Non-Af Amer) 105.1 (>60) 02/05/19 07:15 BUN/Creatinine Ratio 8.9 (8-20) 02/05/19 07:15 Glucose 96 mg/dL (70-100) 02/05/19 07:15 POC Glucose (mg/dL) 93 mg/dL (70-100) 02/05/19 07:46 Calcium 8.5 mg/dL (8.6-10.3) L 02/05/19 07:15 Blood Type A Positive 01/30/19 11:40 Antibody Screen Negative 01/30/19 11:40 Intake & Output 02/04/19 02/05/19 02/05/19 22:59 06:59 14:59 Intake Total 1460 248 988 Output Total 1790 650 15 Balance -330 -402 973 Intake: IV Fluids 148 988 ABX - ZOSYN 148 78 NS (0.9%) 20 meq KCL 910 Oral 1460 100 Output: ENMANUEL #1 40 0 15 Urine 850 Klein 850 650 Liquid Stool 50 Other: Date of Last Bowel 02/04/2019 02/05/19 Movement # Bowel Movements 2 1 Estimated Stool Amount Small Small Abd: soft, nondistended, minimally tender around incisions which are c/d/i. ENMANUEL with serous fluid. 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 - Switch IV protonix to PO - Will continue to monitor, possible DC home Saturday/Sat. Will plan to remove FC prior to DC
[2019-02-05] MEDS: Pantoprazole TAB * 40 MG TAB PO SCH (09:15)
[2019-02-05] MEDS: Atorvastatin* 20 MG TAB PO SCH (10:35)
[2019-02-05] MEDS: Lisinopril TAB* 5 MG PO SCH (10:35)
[2019-02-05] MEDS: metFORMIN* 500 MG TAB PO SCH (17:04)
--- NOTE | 2019-02-05 17:18 | PN ---
Subjective Date of Service: 02/05/19 Interval History: Pt is feeling well. He states his BMs have normalized and he has very little abdominal pain. His diet has advanced and he is tolerating it well. He has been ambulating. Pt denies CP, SOB, fever, cough, abd pain, n/v/d/c, pain in calves. Family History: Unchanged from Admission Social History: Unchanged from Admission Past Medical History: Unchanged from Admission Objective Active Medications: Hydrocodone Bitart/Acetaminophen ([place] 5-325 Tab*) 1 tab PO Q4H PRN Hydrocodone Bitart/Acetaminophen ([place] 5-325 Tab*) 2 tab PO Q4H PRN Atorvastatin Calcium (Lipitor*) 20 mg PO QAM [facility] Dextrose (D50w Syringe 50 Ml*) 12.5 gm IV PUSH .FOR FS < 60 - SS PRN Heparin Sodium (Porcine) (Heparin Vial(*)) 5,000 units SUBCUT Q12HR [facility] Hydromorphone HCl (Dilaudid Inj1s*) 0.5 mg IV SLOW PU Q1H PRN Potassium Chloride/Sodium Chloride (Ns 0.9% W/ 20 Meq Kcl 1000 Ml*) 1,000 mls @ 50 mls/hr IV PER RATE [facility] Insulin Human Lispro (Humalog*) 0 units SUBCUT AC [facility]; Protocol Lisinopril (Prinivil Tab*) 2.5 mg PO QAM [facility] Metformin HCl (Glucophage*) 500 mg PO BID WITH MEALS [facility] Naloxone HCl (Narcan*) 0.08 mg IV PUSH Q2M PRN Ondansetron HCl (Zofran Inj*) 4 mg IV Q4H PRN Pantoprazole Sodium (Protonix Tab*) 40 mg PO DAILY [facility] Vital Signs: Temp Pulse Resp BP Pulse Ox 97.9 F 63 18 102/60 97 02/05/19 16:25 02/05/19 16:25 02/05/19 17:04 02/05/19 16:25 02/05/19 16:25 Oxygen Devices in Use Now: None Appearance: Pt is sitting up in bed. He appears well and in no acute distress. Eyes: No Scleral Icterus, PERRLA Ears/Nose/Mouth/Throat: NL Teeth, Lips, Gums, Clear Oropharnyx, Mucous Membranes Moist Neck: NL Appearance and Movements; NL JVP, Trachea Midline Respiratory: Symmetrical Chest Expansion and Respiratory Effort, Clear to Auscultation Cardiovascular: NL Sounds; No Murmurs; No JVD, RRR, No Edema Abdominal: - - Abd nondistended. BS in all quadrants. Dressing CDI. ENMANUEL intact with serosang fluid in bulb. Extremities: No Edema, No Clubbing, Cyanosis Skin: No Rash or Ulcers Neurological: Alert and Oriented x 3 Result Diagrams: 02/05/19 07:15 02/05/19 07:15 Assess/Plan/Problems-Billing Assessment: Mr. Wynne is a 48 y.omale with hx of type 2 DM resolved with weight loss but is maintained on metformin ,HLD who presented for elective colectomy for diverticulitis. - Patient Problems (1) Status post colectomy Comment: -Management per surgery -DVT ppx per surgery (2) Diabetes Comment: -BS 85-117 in last 24h; pt advanced to soft diet -Restart Metformin 1000 daily -Restart lisinopril (3) HLD (hyperlipidemia) Comment: -Restrart lipitor (4) DVT prophylaxis Comment: -Per surgery: TEDs, Heparin SQ (5) Full code status Status and Disposition: Inpatient. Discharge per surgery. Thank you for this consult. Hospitalist group will sign off today, but are available to assist and re-consult if concerns arise.
[2019-02-06] MEDS: HYDROcodone/ACETAMIN 5-325 MG* 1 TAB PO PRN ×3 (03:10→13:01)
[2019-02-06 06:10] LABS: ABS Basophils 0 10^3/ul (0-0.2); ABS Eosinophils 0.3 10^3/ul (0-0.6); ABS Lymphocytes 1.7 10^3/ul (1.0-4.8); ABS Monocytes 0.5 10^3/ul (0-0.8); ABS Neutrophils 2.5 10^3/ul (1.5-7.7); ABS Nucleated RBC 0 10^3/ul; Eosinophil % 6.7 %; Hematocrit 33 % (36-46); Hemoglobin 11.3 g/dL (14.0-18.0); Lymphocyte % 34.2 %; Mean Corpuscular HGB Conc 34 g/dL (31-36); Mean Corpuscular Hemoglobin 31 pg (27-31); Mean Corpuscular Volume 90 fL (80-94); Mean Platelet Volume 8.8 fL (7.4-10.4); Nucleated Red Blood Cells % 0.1; Platelet Count 236 10^3/uL (150-450); Red Blood Count 3.71 10^6 /uL (4.18-5.48); Red Cell Distribution Width 14 % (10.5-15)
[2019-02-06 06:29] LABS: BUN/Creatinine Ratio 8.9 (8-20); Calcium 8.6 mg/dL (8.6-10.3); EGFR African American 127.2 (>60); EGFR Non-African American 105.1 (>60); Potassium 3.7 mmol/L (3.5-5.0)
[2019-02-06] MEDS: Lisinopril TAB* 5 MG PO SCH (08:36)
[2019-02-06] MEDS: Pantoprazole TAB * 40 MG TAB PO SCH (08:37)
[2019-02-06] MEDS: metFORMIN* 500 MG TAB PO SCH (08:37)
[2019-02-06] MEDS: Atorvastatin* 20 MG TAB PO SCH (08:37)
[2019-02-06] MEDS: Heparin VIAL(*) 5000 UNITS/ML VIAL (FIVE THOUSAND) SUBCUT SCH (08:38)
--- NOTE | 2019-02-06 10:21 | PN ---
Progress Note - Progress Note Date of Service: 02/06/19 Note: Surgery Progress Note S: Patient is doing well. He was tolerating a soft diet, ambulating and has minimal pain controlled on oral narcotics. He has passed flatus but watery BM with no blood. It does not appear to be definitive stool. No nausea or emesis. O: Vital Signs - 24 hr 02/05/19 02/05/19 02/05/19 10:31 10:39 11:34 Temperature 98.0 F Pulse Rate 62 62 Respiratory 18 17 Rate Blood Pressure 100/68 110/66 (mmHg) O2 Sat by Pulse 98 Oximetry 02/05/19 02/05/19 02/05/19 13:26 16:00 16:25 Temperature 97.9 F Pulse Rate 63 Respiratory 18 16 Rate Blood Pressure 102/60 (mmHg) O2 Sat by Pulse 97 97 Oximetry 02/05/19 02/05/19 02/05/19 17:04 20:30 20:33 Temperature 98.2 F Pulse Rate 59 Respiratory 18 16 Rate Blood Pressure 95/56 (mmHg) O2 Sat by Pulse 98 Oximetry 02/05/19 02/05/19 02/05/19 21:58 22:01 23:43 Temperature 97.9 F Pulse Rate 54 Respiratory 17 17 18 Rate Blood Pressure 92/55 (mmHg) O2 Sat by Pulse 98 Oximetry 02/06/19 02/06/19 02/06/19 02:43 03:03 03:07 Temperature Pulse Rate Respiratory 12 16 Rate Blood Pressure (mmHg) O2 Sat by Pulse 98 Oximetry 02/06/19 02/06/19 02/06/19 03:10 03:12 05:50 Temperature 97.8 F Pulse Rate 54 Respiratory 16 14 12 Rate Blood Pressure 101/57 (mmHg) O2 Sat by Pulse 98 Oximetry 02/06/19 02/06/19 07:30 08:37 Temperature 97.7 F Pulse Rate 60 Respiratory 18 16 Rate Blood Pressure 115/70 (mmHg) O2 Sat by Pulse 98 Oximetry Intake & Output 02/05/19 02/06/19 02/06/19 22:59 06:59 14:59 Intake Total 720 0 Output Total 740 265 Balance -20 -265 Intake: Oral 720 0 Output: ENMANUEL #1 15 15 Pepper 725 250 Other: # Bowel Movements 0 Laboratory Results - last 24 hr 0302/05/19 02/06/19 11:55 17:07 05:09 WBC 5.0 RBC 3.71 L Hgb 11.3 L Hct 33 L MCV 90 MCH 31 MCHC 34 RDW 14 Plt Count 236 MPV 8.8 Neut % (Auto) 49.1 Lymph % (Auto) 34.2 [place] % (Auto) 9.4 Eos % (Auto) 6.7 Baso % (Auto) 0.6 Absolute Neuts (auto) 2.5 Absolute Lymphs (auto) 1.7 Absolute Monos (auto) 0.5 Absolute Eos (auto) 0.3 Absolute Basos (auto) 0 Absolute Nucleated RBC 0 Nucleated RBC % 0.1 Sodium Potassium Chloride Carbon Dioxide Anion Gap BUN Creatinine Est GFR ( Amer) Est GFR (Non-Af Amer) BUN/Creatinine Ratio Glucose POC Glucose (mg/dL) 117 H 129 H Calcium 02/06/19 05:09 WBC RBC Hgb Hct MCV MCH MCHC RDW Plt Count MPV Neut % (Auto) Lymph % (Auto) [place] % (Auto) Eos % (Auto) Baso % (Auto) Absolute Neuts (auto) Absolute Lymphs (auto) Absolute Monos (auto) Absolute Eos (auto) Absolute Basos (auto) Absolute Nucleated RBC Nucleated RBC % Sodium 141 Potassium 3.7 Chloride 106 Carbon Dioxide 30 Anion Gap 5 BUN 7 Creatinine 0.79 Est GFR ( Amer) 127.2 Est GFR (Non-Af Amer) 105.1 BUN/Creatinine Ratio 8.9 Glucose 87 POC Glucose (mg/dL) Calcium 8.6 Physical exam: Abd: soft, minimally tender, non distended. Incisions c/d/i, niles in place. ENMANUEL with 65 cc x 24 hr, serous Pepper in place with yellow urine Abx: none PPx: protonix, HSQ A/P: 48 M POD 6 from lap sigmoid, doing well. - Will keep patient because he has not demonstrated a full BM yet - Voiding cystourethrogram today, if it demonstrates no leak will take out pepper - Continue OOB and ambulating - Resume home meds
[2019-02-06] MEDS ORDERED: Ibuprofen TAB* 800 MG PO PRN (12:45)
[2019-02-06 16:45] VITALS: BP 99/60
--- NOTE | 2019-02-06 21:25 | DS ---
DISCHARGE SUMMARY: DATE OF ADMISSION: 01/30/19 DATE OF DISCHARGE: 02/06/19 SERVICE: General Surgery. ATTENDING SURGEON: Dr. Falguni Zaldivar. PRE-OP DIAGNOSIS: Recurrent diverticulitis. POST-OP DIAGNOSIS: Recurrent diverticulitis. OPERATION TITLE: Laparoscopic sigmoidectomy. HOSPITAL COURSE: Mr. Wynne is a 48-year-old gentleman with recurrent diverticulitis, who presented on 02/06/19 for an elective laparoscopic cholecystectomy, which he underwent on the morning of Saturday . His intraoperative course was significant for a small bladder injury that was oversewn and for this his Klein catheter was kept in for about 7 days. His postoperative course was significant for some melena around postop day 3 and 4; however, his hematocrit always remained stable, his vital signs were stable, and he did not require any transfusion. This melena was likely an old blood clot that was being evacuated from his anastomosis. Otherwise, his postoperative course was uneventful. He was advanced to a soft diet and by the day of discharge on postoperative day 6, he was ambulating independently, he was tolerating a soft diet, he was having flatus and bowel movements, and his pain was controlled with oral pain medications. On the day of discharge, he also underwent a cystourethrogram with a voiding study, which showed that there was no leak. Therefore, his Klein catheter was removed and he was able to void after the voiding study. Given that he met all the discharge criteria, he was able to be discharged on postop day 6. DISCHARGE PHYSICAL EXAM: Vital Signs: Temperature is 98.1, heart rate is 78, O2 sat 98% on room air, blood pressure is 103/60. Abdomen is soft, nontender, nondistended. Incisions are clean, dry and intact. Niles are in place in the midline incision. His ENMANUEL drain was removed prior to discharge as well. LABORATORY DATA: White blood cell count is 5, hemoglobin is 11.3, hematocrit is 33, platelets are 236. Sodium 141, potassium is 3.7, chloride is 106, CO2 is 30, BUN 7, creatinine is 0.79, glucose is 87. DISCHARGE MEDICATION: Percocet 5/325 mg p.o. q.6 hours p.r.n. for severe pain, dispensed 20 tabs. DISCHARGE INSTRUCTIONS: The patient was told to return to clinic on Saturday02/11/19 to remove his niles. 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 DISPOSITION: To home. CONDITION: Good. [id number]/CPS #: [id number] MTDD
== END 2019-02-06 17:10 | disposition home or self-care (01) | DRG 221 ==
LOC: AA 01-30 10:36 → SSU 01-30 18:49
PROVIDERS: ADMIT Surgery; ATTEND Surgery
PROC: 0T9B70Z Drainage of Bladder with Drainage Device, Via Natural or Artificial Opening (ICD-10-PCS; 2019-01-31)
PROC: 0DBN4ZZ Excision of Sigmoid Colon, Percutaneous Endoscopic Approach (ICD-10-PCS; principal; 2019-01-31 08:30)
DX: K57.32 Diverticulitis of large intestine without perforation or abscess without bleeding (principal); S37.23XA Laceration of bladder, initial encounter; K92.1 Melena; E78.5 Hyperlipidemia, unspecified; I10 Essential (primary) hypertension; J30.2 Other seasonal allergic rhinitis; E66.9 Obesity, unspecified; E11.9 Type 2 diabetes mellitus without complications; Z82.49 Family history of ischemic heart disease and other diseases of the circulatory system; Z83.79 Family history of other diseases of the digestive system; X58.XXXA Exposure to other specified factors, initial encounter; Y92.234 Operating room of hospital as the place of occurrence of the external cause; Z68.28 Body mass index [BMI] 28.0-28.9, adult; Z87.891 Personal history of nicotine dependence
CPT/HCPCS: 36415; 51600; 74455; 80048; 85025; 86850; 86900; 86901; 88305; 88307; A9270-GY; C1776; J0780; J1100; J1170; J1335; J1644; J1885; J2250; J2405; J2543; J2704; J2710; J3010; J3480; J3490